=== PATIENT | male | born 1960 | race Caucasian/White ===

== ENCOUNTER → 2017-03-26 | Outpatient (CLI) | payer MEDICARE ==
[~2017-03-26] MED LIST: ASPI81CH32 PO; ASTELIN; BUPR150T3 PO; CEPA0.05 MT; COLC1TAB5 PO; DOCU10CA PO; DULC5TAB PO; DUONSOL NEB; FLEXERIL PO; LISI-538 PO; LISI10TA4 PO; LISI20TA PO; MOM30SS PO; MULTCAP PO; NORV5TAB PO; PAXI40TA2 PO; PERC5TAB6 PO; PRAV20TA2 PO; PRED20TAB PO; PROT1TAB2 PO; QUET1TAB7 PO; SENO8.6T10 PO; STOO100T PO; VALI2TAB PO
--- NOTE | 2017-03-27 09:55 | RADONC ---
RADIATION ONCOLOGY FOLLOWUP NOTE DATE: 03/26/2017 CHART NUMBER: [id number] DIAGNOSIS: Prostate cancer. STAGE: II, [id number]. ECOG PERFORMANCE STATUS: 2. FOLLOWUP NOTE: Mr. Smith is very pleasant 56-year-old white male with the diagnosis of a stage II, T1 cN0M0, moderately differentiated [place]ov[place] score 6(3-3) adenocarcinoma of the prostate who is presenting to us today 7 years post completion of external beam radiation therapy for routine followup visit. The patient presents today reporting that generally he is doing quite well with no complaints at this time related to his radiation therapy or disease other than some urinary incontinence. The patient's review of systems is positive for urinary incontinence but is otherwise noncontributory. He denies nausea, vomiting, fevers, chills, night sweats, diplopia, headaches, anxiety or depression, anorexia, weight loss, visual disturbances, chest pain, urinary or bowel difficulties, bone pain, or neurological problems. PHYSICAL EXAMINATION: The patient is a well-developed, well-nourished male in no acute distress. HEENT exam is normocephalic, atraumatic. Extraocular movements are intact. There is no palpable cervical, supraclavicular, infraclavicular, axillary, or inguinal lymphadenopathy present. Lungs are clear to auscultation and percussion. Heart has a regular rate and rhythm. Abdomen is benign with no hepatosplenomegaly, masses, or tenderness. Rectal examination reveals a normal anal sphincter tone. His prostate is smooth with no evidence of nodularity. Skeletal examination reveals no tenderness to pressure or percussion of the bony skeleton. Extremities reveal no clubbing, cyanosis, or edema. Neurologic exam is grossly intact as is the remainder of the physical examination. ASSESSMENT: The patient is clinically LOUIS at this time will be seen by us again in 1 year for further followup. He will also continue to be followed by his other physicians as well. cc: MD Branden Clayton MD Laverne VanDeWall, DO
== END ==
LOC: M ONCR 14:46
PROVIDERS: ATTEND Radiology Radiation Oncology
DX: C61 Malignant neoplasm of prostate (principal)

== ENCOUNTER → 2017-04-01 | Outpatient (REF) | payer MEDICARE ==
[2017-04-01 17:51] LABS: URIC ACID 4.7 MG/DL (3.5-7.2)
== END ==
LOC: M LAB REF 16:44
PROVIDERS: ATTEND Nurse Practitioner Adult Health
DX: M10.9 Gout, unspecified (principal); N18.3 Chronic kidney disease, stage 3 (moderate)

== ENCOUNTER → 2017-10-03 | Outpatient (CLI) | payer MEDICARE, BC ==
[~2017-10-03] MED LIST changes: +COLC1TAB14 PO; -COLC1TAB5 PO; +PAXI40TA10 PO; -PAXI40TA2 PO; +PERC5TAB12 PO; -PERC5TAB6 PO
--- NOTE | 2017-10-03 14:21 | REP ---
RIGHT ELBOW SERIES: FOUR VIEWS. HISTORY: Contusion. FINDINGS: Four views of the right elbow demonstrate marked soft tissue swelling about the olecranon. Pattern is consistent with olecranon bursitis. No fracture is seen. There is no evidence of joint effusion. IMPRESSION: Olecranon bursitis pattern of marked soft-tissue swelling. No joint effusion or fracture seen. Signed by Venkata Oquendo MD 10/03/2017 03:58 P
== END ==
LOC: M WUC 12:43
PROVIDERS: ATTEND Physician Assistant
DX: S50.01XA Contusion of right elbow, initial encounter (principal); X58.XXXA Exposure to other specified factors, initial encounter; Y92.89 Other specified places as the place of occurrence of the external cause; Y93.89 Activity, other specified; Y99.8 Other external cause status

== ENCOUNTER → 2017-10-29 | Outpatient (REF) | payer MEDICARE, BC ==
[2017-10-29 18:14] LABS: C REACTIVE PROTEIN QUANTITATIV < 0.30 MG/DL (0.00-0.30)
== END ==
LOC: M LAB REF 16:05
DX: M06.20 Rheumatoid bursitis, unspecified site (principal)
CPT/HCPCS: 86140

== ENCOUNTER → 2018-04-08 | Outpatient (REF) | payer MEDICARE, BC ==
[2018-04-10 13:07] LABS: IRON (FE) 75 UG/DL (65-175)
== END ==
LOC: M LAB REF 04-10 12:09
DX: D45 Polycythemia vera (principal)
CPT/HCPCS: 83540

== ENCOUNTER → 2018-04-08 | Outpatient (CLI) | payer MEDICARE, BC | LOC: M ONCR 15:23 | DX: C61 Malignant neoplasm of prostate (principal) | CPT/HCPCS: G0463 ==

== ENCOUNTER → 2018-05-12 | Outpatient (REF) | payer MEDICARE, BC ==
[2018-05-12 18:30] LABS: PHOSPHORUS LEVEL 3.3 MG/DL (2.5-4.9)
[2018-05-12 18:37] LABS: PTH INTACT 169.3 PG/ML (18.5-88.0)
== END ==
LOC: M LAB REF 16:43
DX: N25.81 Secondary hyperparathyroidism of renal origin (principal); N18.3 Chronic kidney disease, stage 3 (moderate)

== ENCOUNTER → 2018-05-12 | Outpatient (CLI) | payer MEDICARE, BC | LOC: M WUC 14:28 | DX: M79.645 Pain in left finger(s) (principal); N25.81 Secondary hyperparathyroidism of renal origin; N18.3 Chronic kidney disease, stage 3 (moderate) | CPT/HCPCS: 84100 ==

== ENCOUNTER → 2018-11-13 | Outpatient (REF) | payer MEDICARE, BC | LOC: M LAB REF 16:25 | PROVIDERS: ATTEND Nurse Practitioner Adult Health | DX: N25.81 Secondary hyperparathyroidism of renal origin (principal) ==

== ENCOUNTER → 2019-03-23 | Outpatient (REF) | payer MEDICARE, BC ==
[~2019-03-23] MED LIST changes: -ASPI81CH32 PO; +ASPI81CH33 PO
== END ==
LOC: M LAB REF 16:45
PROVIDERS: ATTEND Nurse Practitioner Adult Health
DX: N18.3 Chronic kidney disease, stage 3 (moderate) (principal)

== ENCOUNTER → 2019-03-31 | Outpatient (CLI) | payer BC, MEDICARE ==
--- NOTE | 2019-04-02 08:41 | RADONC ---
RADIATION ONCOLOGY FOLLOW-UP NOTE DATE: 03/31/2019 CHART NUMBER: [id number] DIAGNOSIS: Prostate cancer. STAGE: II, [id number]. ECOG PERFORMANCE STATUS: 2 FOLLOW-UP NOTE: Mr. Smith is a very pleasant 58-year-old white male with the diagnosis of a stage II, [id number], moderately differentiated [place] score 6 (3-3) adenocarcinoma of the prostate who is presenting to us today for routine follow-up 9 years post completion of external beam radiation therapy. The patient presents today reporting that he is doing quite well with no complaints at this time related to his radiation therapy or disease. He has no urinary or bowel difficulties and no bone pain. REVIEW OF SYSTEMS: The patient's review of systems is noncontributory except for deafness. He denies nausea, vomiting, fevers, chills, night sweats, diplopia, headaches, anxiety or depression, anorexia, weight loss, visual disturbances, chest pain, urinary or bowel difficulties, bone pain or neurological problems. PHYSICAL EXAMINATION: The patient is a well-developed, well-nourished male in no acute distress. HEENT exam is normocephalic, atraumatic. Extraocular movements are intact. There is no palpable cervical, supraclavicular, infraclavicular, axillary, or inguinal lymphadenopathy present. Lungs are clear to auscultation and percussion. Heart has a regular rate and rhythm. Abdomen is benign with no hepatosplenomegaly, masses, or tenderness. Rectal examination reveals a normal anal sphincter tone. His prostate is smooth with no evidence of nodularity. Skeletal examination reveals no tenderness to pressure or percussion of the bony skeleton. Extremities reveal no clubbing, cyanosis, or edema. Neurologic exam is grossly intact as is the remainder of the physical examination. ASSESSMENT: The patient is clinically LOUIS at this time and is being discharged from our follow-up except on a p.r.n. basis. cc: MD Jessica Muniz ANP Andres Madissoo, MD
== END ==
LOC: M ONCR 14:24
PROVIDERS: ATTEND Radiology Radiation Oncology
DX: Z85.46 Personal history of malignant neoplasm of prostate (principal); Z92.3 Personal history of irradiation

== ENCOUNTER → 2019-06-04 | Outpatient (CLI) | payer MEDICARE ==
[~2019-06-04] MED LIST changes: -LISI20TA PO; +LISI20TA19 PO
--- NOTE | 2019-06-06 10:51 | ECHO ---
DATE OF PROCEDURE: 06/04/2019 REFERRING PHYSICIAN: Dr. Navarro INDICATION: Systemic hypertension. HEIGHT: 5 feet 8 inches WEIGHT: 203 pounds 2D MEASUREMENTS: Aortic annulus: 3.4 cm Left atrium: 3.6 cm Ventricular septum: 1.21 cm Posterior wall: 1.24 cm Left ventricle diastole: 5.5 cm DOPPLER MEASUREMENTS: Aortic valve velocity: 118 cm/s LVOT velocity: 86.5 cm/s Mitral E velocity: 55.3 cm/s Mitral A velocity: 80.0 cm/s Pulmonary artery systolic pressure: 27 mmHg. MITRAL ANNULAR TISSUE DOPPLER: E prime septal: 4.35 cm/s E prime lateral: 4.6 cm/s DESCRIPTION: Rhythm was sinus. Image quality was fair. No pericardial effusion. This was a 2D, M-mode, color flow Doppler and pulse wave Doppler examination and included mitral annular tissue Doppler. CONCLUSIONS: 1. Mild concentric left ventricular hypertrophy with superimposed moderate focal hypertrophy of the basal anterior ventricular septum. No dynamic LVOT obstruction. Normal LV systolic function. Left ventricular ejection fraction (LVEF) 65% by visual estimate. Grade 1 LV diastolic dysfunction. 2. Mild mitral annular calcification. No mitral regurgitation. 3. Very mild aortic valve sclerosis of a 3-cusp aortic valve. No aortic regurgitation. 4. Otherwise normal appearing echocardiogram Doppler.
== END ==
LOC: M CARPUL 09:05
PROVIDERS: ATTEND Internal Medicine Nephrology
DX: I10 Essential (primary) hypertension (principal)

== ENCOUNTER → 2019-06-11 | Outpatient (REF) | payer MEDICARE | LOC: M LAB REF 16:24 | PROVIDERS: ATTEND Nurse Practitioner Adult Health | DX: R07.9 Chest pain, unspecified (principal) ==

== ENCOUNTER 2020-03-31 06:08 | Emergency (ER) | payer MEDICARE ==
[~2020-03-31] VITALS: Ht 177.8 cm; Wt 89.5 kg
[~2020-03-31 06:08] MED LIST changes: -LISI20TA19 PO; +LISI20TA35 PO
[2020-03-31] MEDS ORDERED: BUPR300T92 (06:42)
[2020-03-31] MEDS ORDERED: SPIR-10 (06:42)
[2020-03-31] MEDS ORDERED: ALLO100T (06:42)
[2020-03-31] MEDS ORDERED: CLON-412 (06:42)
[2020-03-31] MEDS ORDERED: NS 1,000 ML IV SCH (07:05)
[2020-03-31 07:19] LABS: BASO # 0.1 10^3/uL (0.0-0.2); BASO % 0.4 % (0.0-1.0); EOS % 0.2 % (0.0-3.0); HEMATOCRIT 47.6 % (42.0-52.0); HEMOGLOBIN 16.2 g/dl (13.5-17.5); LYMPH # 1.2 10^3/uL (1.5-5.0); LYMPH % 9.5 % (24.0-44.0); MEAN CORPUSCULAR HEMOGLOBIN 31.2 pg (27.0-33.0); MEAN CORPUSCULAR VOLUME 91.7 fl (80.0-96.0); MONO % 7.4 % (0.0-5.0); NEUTROPHILS # 10.6 10^3/uL (1.5-8.5); NEUTROPHILS % 81.8 % (36.0-66.0); PLATELET COUNT, AUTOMATED 256 10^3/uL (150-450); RED BLOOD COUNT 5.19 10^6/uL (4.30-6.10); WHITE BLOOD COUNT 12.9 10^3/uL (4.0-10.0)
[2020-03-31 07:33] LABS: ALBUMIN 3.8 GM/DL (3.2-5.2); BILIRUBIN,DIRECT 0.2 MG/DL (0.0-0.2); BILIRUBIN,TOTAL 0.7 MG/DL (0.2-1.0); CALCIUM LEVEL 8.9 MG/DL (8.8-10.2); CK-MB VALUE MASS 5.7 NG/ML (<3.6); CREATININE FOR GFR 2.79 MG/DL (0.70-1.30); GLOMERULAR FILTRATION RATE 24.7 (>49); MB/CK RELATIVE INDEX 1.38 (< OR =4); POTASSIUM SERUM 5.2 MEQ/L (3.5-5.1); TOTAL PROTEIN 6.7 GM/DL (6.4-8.2); TROPONIN I 0.05 NG/ML (< 0.10)
[2020-03-31 07:38] LABS: THYROID STIMULATING HORMONE 0.764 uIU/ML (0.358-3.740)
--- NOTE | 2020-03-31 07:42 | REPVR ---
PROCEDURE INFORMATION: Exam: CT Head Without Contrast Exam date and time: 03/31/2020 7:22 AM Age: 59 years old Clinical indication: Altered mental status/memory loss TECHNIQUE: Imaging protocol: Computed tomography of the head without contrast. Radiation optimization: All CT scans at this facility use at least one of these dose optimization techniques: automated exposure control; mA and/or kV adjustment per patient size (includes targeted exams where dose is matched to clinical indication); or iterative reconstruction. COMPARISON: No relevant prior studies available. FINDINGS: Tubes, catheters and devices: A right frontal approach TRACER LATHE SET UP OPERATOR shunt catheter is present with its tip in the frontal horn of the left lateral ventricle. Brain: Mild degrees of lucency in the white matter are most suggestive of chronic microvascular ischemic disease. There is no evidence for large acute cortical infarct. No intracranial hemorrhage or extraaxial collection is identified. There is no significant intracranial mass effect. Small lacunar infarcts are present in the bilateral basal ganglia. Ventricles: The ventricles and sulci are moderately prominent, in concordance with moderate global atrophy. Bones/joints: Unremarkable. No acute fracture. Sinuses: Visualized sinuses are unremarkable. No fluid levels. Mastoid air cells: Visualized mastoid air cells are well aerated. Vasculature: Intracranial atherosclerotic vascular calcifications are noted. Soft tissues: Unremarkable. IMPRESSION: 1. No CT evidence for acute intracranial abnormality. 2. TRACER LATHE SET UP OPERATOR shunt catheter in place. ASSESSMENT: ASPECTS (Diane Stroke Program Early CT Score) is 10. COMMENTS: Early cerebral infarct may be CT occult in the first 12 hours. Electronically signed by: Nimesh Romo On 03/31/2020 07:41:31 AM
[2020-03-31 07:52] LABS: VENOUS BASE EXCESS -5.3 (-2.0-2.0); VENOUS HCO3 19.2 MEQ/L (23.0-27.0); VENOUS O2 SATURATION 91.8 % (60.0-80.0); VENOUS PARTIAL PRESSURE CO2 34.6 mmHg (38.0-50.0); VENOUS PARTIAL PRESSURE O2 62.2 mmHg (30.0-50.0); VENOUS PH 7.362 UNITS (7.330-7.430); VENOUS STANDARD HCO3 20.1 MEQ/L; VENOUS TOTAL CO2 20.3 MEQ/L (24.0-28.0)
--- NOTE | 2020-03-31 07:57 | REP ---
Portable chest x-ray: Single view. History: Altered mental status. Comparison study: May 01, 2015. Findings: A right-sided ventriculoperitoneal shunt catheter is seen along with monitoring electrodes. There is linear fibrosis versus plate-like atelectasis along the left heart border. The lungs are symmetrically aerated and otherwise clear. Pleural angles are sharp. Pulmonary vasculature is not increased. Heart is not felt to be enlarged. Impression: No acute disease. Plate-like atelectasis versus linear fibrosis along the left heart border. Electronically Signed by Venkata Oquendo MD 03/31/2020 07:47 A
[2020-03-31 08:19] LABS: MAGNESIUM LEVEL 2.2 MG/DL (1.8-2.4)
[2020-03-31 09:31] LABS: POTASSIUM RANDOM URINE 62.5 MEQ/L
[2020-03-31 09:41] VITALS: BP 143/83
[2020-03-31 09:52] LABS: TOTAL PROTEIN,RANDOM URINE 37.3 MG/DL (0.0-12.0)
--- NOTE | 2020-04-01 07:51 | ECGEPIP ---
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
== END 2020-03-31 09:50 | disposition home or self-care (01) ==
LOC: M ED 06:08
DX: N28.9 Disorder of kidney and ureter, unspecified (principal); I10 Essential (primary) hypertension; J44.9 Chronic obstructive pulmonary disease, unspecified; E78.5 Hyperlipidemia, unspecified; F33.9 Major depressive disorder, recurrent, unspecified; G91.9 Hydrocephalus, unspecified; Z98.2 Presence of cerebrospinal fluid drainage device; Z79.899 Other long term (current) drug therapy; Z79.82 Long term (current) use of aspirin; Z88.1 Allergy status to other antibiotic agents; Z87.891 Personal history of nicotine dependence

== ENCOUNTER 2020-06-13 20:28 | Emergency (ER) | payer MEDICARE ==
[~2020-06-13] VITALS: Ht 165.1 cm; Wt 122.7 kg
[~2020-06-13 20:28] MED LIST changes: +ALLO100T; +BUPR300T92; +CLON-412; +SPIR-10
[2020-06-13 21:45] VITALS: BP 152/88
== END 2020-06-13 22:45 | disposition home or self-care (01) ==
LOC: M ED 20:28
DX: R41.0 Disorientation, unspecified (principal); I10 Essential (primary) hypertension; E11.9 Type 2 diabetes mellitus without complications; K21.9 Gastro-esophageal reflux disease without esophagitis; I25.10 Atherosclerotic heart disease of native coronary artery without angina pectoris; H90.5 Unspecified sensorineural hearing loss; Z88.1 Allergy status to other antibiotic agents; Z79.899 Other long term (current) drug therapy; Z79.82 Long term (current) use of aspirin

== ENCOUNTER 2021-03-10 05:57 | Inpatient (IN) | payer MEDICARE ==
[~2021-03-10] VITALS: Ht 170.2 cm; Wt 87.5 kg
[~2021-03-10 05:57] MED LIST changes: -ALLO100T; +ALLO100T PO; +BUPR150T12 PO; -BUPR150T3 PO; -BUPR300T92; +BUPR300T92 PO; -CLON-412; +CLON-412 PO; -LISI-538 PO; +LISI10TA22 PO; -LISI10TA4 PO; +LISI20TA33 PO; -QUET1TAB7 PO; +QUET25TA3 PO
[2021-03-10 07:16] LABS: BASO # 0.1 10^3/uL (0.0-0.2); EOS # 0.7 10^3/uL (0.0-0.5); EOS % 6.9 % (0.0-3.0); HEMATOCRIT 48.7 % (42.0-52.0); HEMOGLOBIN 15.9 g/dl (13.5-17.5); LYMPH % 18.8 % (24.0-44.0); MEAN CORPUSCULAR HEMOGLOBIN 30.7 pg (27.0-33.0); MEAN CORPUSCULAR HGB CONC 32.6 g/dl (32.0-36.5); MONO # 0.8 10^3/uL (0.0-0.8); MONO % 7.4 % (2.0-8.0); NEUTROPHILS # 6.9 10^3/uL (1.5-8.5); NEUTROPHILS % 65.2 % (36.0-66.0); PLATELET COUNT, AUTOMATED 332 10^3/uL (150-450); RED BLOOD COUNT 5.18 10^6/uL (4.30-6.10); WHITE BLOOD COUNT 10.5 10^3/uL (4.0-10.0)
[2021-03-10 07:44] LABS: ALBUMIN 3.6 GM/DL (3.2-5.2); ALT/SGPT 41 U/L (12-78); BILIRUBIN,DIRECT 0.1 MG/DL (0.0-0.2); BILIRUBIN,TOTAL 0.4 MG/DL (0.2-1.0); NT-PRO BNP 33 PG/ML (<125)
[2021-03-10] MEDS ORDERED: methylPREDNISolone 125MG 2ML VIAL IV ONE (07:50)
[2021-03-10] MEDS ORDERED: ACETAMINOPHEN TAB 650MG DOSE (2X325MG) PO ONE (07:50)
--- NOTE | 2021-03-10 08:01 | REP ---
INDICATION: DYSPNEA/COUGH COMPARISON: 03/31/2020 TECHNIQUE: Portable AP view of the chest FINDINGS: Examination is limited by portable technique, underpenetration and poor inspiratory effort. The mediastinum and cardiac silhouette are stable and cardiomegaly again noted. The lung vuong are clear without acute consolidation, effusion, or pneumothorax. Skeletal structures are intact. Right-sided ventriculoperitoneal shunt noted and stable position. IMPRESSION: No acute cardiopulmonary process appreciated. <Electronically signed by Rui Egan > 03/10/21 0758
[2021-03-10] MEDS: COMBIVENT RESPIMAT 100-20MCG INHALER 4GM INH SCH ×3 (08:08→08:17)
[2021-03-10 08:44] VITALS: O2SAT 95
--- NOTE | 2021-03-10 08:56 | ECGEPIP ---
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
--- NOTE | 2021-03-10 09:10 | REP ---
INDICATION: headache, h/o COLLEGE DEAN shunt COMPARISON: 07/10/2020 TECHNIQUE: Axial noncontrast images from the skull base to the thoracic inlet with coronal reformations. This CT examination was performed using the following dose reduction techniques: Automated exposure control, adjustment of mA and/or kv according to the patient's size, and use of iterative reconstruction technique. FINDINGS: Atrophy, periventricular leukomalacia and microvascular ischemic changes are appreciated and relatively stable. Ventriculoperitoneal shunt via a right frontal approach is again noted and the ventricles and sulci are symmetric/stable. Naqvi-white differentiation is maintained. There is no evidence for acute intracranial hemorrhage, mass/mass effect, pathology or infarction. No extra-axial fluid collection. Calvarium is intact. Paranasal sinuses and mastoid air cells are clear. IMPRESSION: Atrophy and microvascular ischemic changes. Ventriculoperitoneal shunt in stable position with stable appearance to the ventricles. No acute intracranial hemorrhage, infarction, or mass/mass effect. <Electronically signed by Rui Egan > 03/10/21 0906
[2021-03-10 10:29] LABS: BLOOD UREA NITROGEN 21 MG/DL (7-18); CARBON DIOXIDE LEVEL 19 MEQ/L (21-32); CHLORIDE LEVEL 111 MEQ/L (98-107); CREATININE FOR GFR 1.77 MG/DL (0.70-1.30); GLOMERULAR FILTRATION RATE 41.7 (>49); GLUCOSE, FASTING 89 MG/DL (70-100); SODIUM LEVEL 140 MEQ/L (136-145)
--- NOTE | 2021-03-10 10:30 | REP ---
INDICATION: b/l leg pain, SOB, r/o dvt COMPARISON: None. TECHNIQUE: Naqvi scale and color Doppler evaluation using linear high frequency transducer. FINDINGS: Ultrasound examination of the right and left lower extremity deep venous structures from the common femoral vein through the calf/ankle to include the peroneal, and tibial veins demonstrates normal compressibility flow and wave patterns in response to respiration and augmentation. There is no evidence for deep venous thrombosis. 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 IMPRESSION: No evidence for deep venous thrombosis. <Electronically signed by Rui Egan > 03/10/21 1024
[2021-03-10 10:46] LABS: CK-MB VALUE MASS 2.6 NG/ML (<3.6); CPK CREATINE PHOSPHOKINASE 207 U/L (39-308); MB/CK RELATIVE INDEX 1.26 (< OR =4); TROPONIN I < 0.02 NG/ML (< 0.10)
[2021-03-10] MEDS ORDERED: ISOVUE-370 76% 100ML VIAL As Ordered ONE (11:10)
[2021-03-10] MEDS ORDERED: AZEL0.055 NARES (11:15)
[2021-03-10] MEDS ORDERED: CYCL-707 PO (11:15)
[2021-03-10] MEDS ORDERED: AMLO1TAB25 PO (11:15)
[2021-03-10] MEDS ORDERED: ALBUTEROL 90 MCG/ACT 8GM HFA INHALER INH PRN (11:25)
[2021-03-10] MEDS ORDERED: ACETAMINOPHEN TAB 650MG DOSE (2X325MG) PO PRN (11:25)
--- NOTE | 2021-03-10 11:52 | REP ---
INDICATION: sob, r/o PE COMPARISON: None. TECHNIQUE: Axial contrast enhanced images from the thoracic inlet to the upper abdomen using pulmonary embolus technique with multiplanar re-formations. 50 ml Isovue 370 intravenous contrast material administered without complication. This CT examination was performed using the following dose reduction techniques: Automated exposure control, adjustment of mA and/or kv according to the patient's size, and use of iterative reconstruction technique. FINDINGS: Satisfactory enhancement of the pulmonary vasculature is achieved however evaluation is significantly limited due to respiratory motion artifact, and no obvious filling defects are identified to suggest pulmonary embolus. There is evidence for mucous plugging involving right lower lobe bronchus with associated moderate area of right lower lobe postobstructive atelectasis. There is a rounded soft tissue lesion at the right hilum which may reflect reactive adenopathy. Remainder of lung vuong are relatively well aerated and clear. No effusion. No pneumothorax. Remainder of the mediastinum demonstrates atherosclerotic changes to the thoracic aorta and coronary arteries without aortic aneurysm/dissection. Mild cardiomegaly cannot be excluded. No pericardial effusion. Skeletal structures are intact. Limited upper abdomen demonstrates normal bilateral adrenal glands, bilateral renal hypodensities suggesting cysts and cholelithiasis without evidence for acute cholecystitis. IMPRESSION: 1. Limited by respiratory artifact. However no pulmonary emboli are identified. 2. Mucous plugging and postobstructive atelectasis to the right lower lobe. <Electronically signed by Rui Egan > 03/10/21 [id number]
[2021-03-10] MEDS ORDERED: ALBU83IN NEB (11:53)
--- NOTE | 2021-03-10 11:54 | HPEPDOC ---
General Date of Admission March 10, 2021 at 05:58 Date of Service: March 10, 2021 Chief Complaint The patient is a 60-year-old male admitted with a reason for visit of Shortness Of Breath. Source: Patient Exam Limitations: No limitations Timing/Duration: Day(s) Severity: Moderate History of Present Illness Patient is 60 years old deaf male with past medical history of depression, hypertension, hyperlipidemia, COPD, hydrocephalus, prostate cancer, status post radiation, CVA presented hospital with increased shortness of breath. The patient is unable to speak and is only able to sign. I obtained all information from his brother who was physically present in the room. Patient developed cough, increased shortness of breath for past 5-7 days. His symptoms became worse despite of increased frequency of using inhalers. He didn't have any fever or chills or sputum production. His brother told me that patient became more deconditioned for past few weeks and most of the time he is lying on the bed. In ER patient was found to have leukocytes count of 10.5, creatinine 1.7, lactic acid 0.9, d dimer>4000. Doppler DVT of lower extremities negative. Nasal swab positive for human rhinovirus/enterovirus infection. Chest X-ray negative for acute infiltrate Home Medications Scheduled Allopurinol (Allopurinol) 100 Mg Tablet, 100 MG PO QPM, (Reported) Amlodipine Besylate (Amlodipine Besylate) 10 Mg Tablet, 10 MG PO DAILY, ( Reported) Bupropion HCl (Bupropion Xl) 300 Mg Tab.er.24h, 300 MG PO DAILY, (Reported) Clonidine HCl (Clonidine HCl) 0.1 Mg Tablet, 0.1 MG PO DAILY, (Reported) Lisinopril (Lisinopril) 20 Mg Tab, 20 MG PO DAILY, (Reported) HOLD FOR SBP <110 Pantoprazole Sodium (Protonix) 40 Mg Tab, 40 MG PO DAILY, (Reported) Paroxetine HCl (Paxil) 40 Mg Tab, 40 MG PO DAILY, (Reported) Pravastatin Sodium (Pravastatin Sodium) 20 Mg Tab, 20 MG PO DAILY, (Reported) Sennosides/Docusate Sodium (Senokot-S Tablet) 1 Tab Tab, 1 TAB PO BID, (Reported) Scheduled PRN Albuterol Sulf (Albuterol Sulfate) 2.5 Mg/3 Ml Vial.neb, 1 VIAL NEB Q4H PRN for SOB/WHEEZING, (Reported) Cyclobenzaprine HCl (Cyclobenzaprine HCl) 10 Mg Tablet, 10 MG PO TID PRN for MUSCLE SPASMS, (Reported) Milk Of Magnesia (Milk of Magnesia) 30 Ml Conc, 30 ML PO DAILYPRN PRN for CONSTIPATION, (Reported) Allergies Coded Allergies: cephalexin (Verified Allergy, Intermediate, HIVES, 03/31/20) Past Medical History Medical History depression, hypertension, hyperlipidemia, COPD, hydrocephalus, prostate cancer, status post radiation, CVA, gout 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 Family History Mother has hypertension, father has throat cancer Social History * Smoker: former Smoker Alcohol: Denies Drugs: denies A-FIB/CHADSVASC A-FIB History Current/History of A-Fib/PAF?: No Current PO Anticoag Therapy: No Review of Systems Constitutional: Reports: Malaise; Denies: Chills, Fever Eyes: Denies: Pain ENT: Denies: Head Aches Skin: Denies: Rash Pulmonary: Reports: Dyspnea, Cough Cardiovascular: Denies: Chest Pain Gastrointestinal: Denies: Nausea, Vomiting Genitourinary: Denies: Dysuria Hematologic: Denies: Bruising, Bleeding Excessively Endocrine: Denies: Polydipsia Musculoskeletal: Denies: Neck Pain Neurological: Denies: Weakness Psych: Reports: Mood Normal Physical Examination General Exam: Positive: Alert, Cooperative Eye Exam: Positive: PERRLA ENT Exam: Positive: Atraumatic Neck Exam: Positive: Supple; Negative: JVD Chest Exam: Positive: Rhonchi, Wheezing; Negative: Clear to auscultation Heart Exam: Positive: Rate Normal Telemetry: Positive: No significant arrhythmia Abdomen Exam: Positive: Normal bowel sounds Extremity Exam: Negative: Clubbing, Cyanosis Skin Exam: Positive: Nl turgor and temperature Neuro Exam: Positive: Strength at 5/5 X4 ext Psych Exam: Positive: Mood NL Vital Signs Vital Signs Date Time Temp Pulse Resp B/P (MAP) Pulse Ox O2 Delivery O2 Flow Rate FiO2 03/10/21 10:15 81 22 145/84 (104) 93 Room Air 03/10/21 06:45 98.8 Laboratory Data Labs 24H Laboratory Tests 2 03/10/21 06:59: Immature Granulocyte % (Auto) 0.7, Neutrophils (%) (Auto) 65.2, Lymphocytes (%) (Auto) 18.8L, Monocytes (%) (Auto) 7.4, Eosinophils (%) (Auto) 6.9H, Basophils (%) (Auto) 1.0, Neutrophils # (Auto) 6.9, Lymphocytes # (Auto) 2.0, Monocytes # (Auto) 0.8, Eosinophils # (Auto) 0.7H, Basophils # (Auto) 0.1, Nucleated Red Blood Cells % (auto) 0.0, Anion Gap 10, Glomerular Filtration Rate 41.7L, Lactic Acid Level 0.9, Calcium Level 9.0, Total Bilirubin 0.4, Direct Bilirubin 0.1, Aspartate Amino Transf (AST/SGOT) 26, Alanine Aminotransferase (ALT/SGPT) 41, Alkaline Phosphatase 110, Total Creatine Kinase 207, Creatine Kinase MB 2.6, Creatine Kinase MB Relative Index 1.26, Troponin I < 0.02, CX-Zpo-L-Type Natriuretic Peptide 33, Total Protein 7.0, Albumin 3.6, Albumin/Globulin Ratio 1.1, Thyroid Stimulating Hormone (TSH) 1.540 03/10/21 08:16: POC pH (Misc Panel) 7.377, POC Base Excess (Misc Panel) -5.0L, POC Saturated Percent O2 (Misc) 94L, POC pO2 (Misc Panel) 70.0L, POC pCO2 (Misc Panel) 33.8L, POC HCO3 (Misc Panel) 19.9L, POC Total CO2 (Misc Panel) 21.0L 03/10/21 08:24: D-Dimer, Quantitative > 4000H CBC/BMP Laboratory Tests 03/10/21 06:59 Microbiology Microbiology 03/10/21 Blood Culture, Received Pending 03/10/21 Respiratory Virus Panel (PCR) (VONDA) - Final, Complete Human Rhinovirus/Enterovirus 03/10/21 Blood Culture, Received Pending Assessment/Plan Patient is 60 years old deaf male with past medical history of depression, hypertension, hyperlipidemia, COPD, hydrocephalus, prostate cancer, status post radiation, CVA presented hospital with increased shortness of breath. The pat ient is unable to speak and is only able to sign. I obtained all information from his brother who was physically present in the room. Patient developed cough, increased shortness of breath for past 5-7 days. His symptoms became worse despite of increased frequency of using inhalers. He didn't have any fever or chills or sputum production. His brother told me that patient became more deconditioned for past few weeks and most of the time he is lying on the bed. In ER patient was found to have leukocytes count of 10.5, creatinine 1.7, lactic acid 0.9, d dimer>4000. Doppler DVT of lower extremities negative. Nasal swab positive for human rhinovirus/enterovirus infection. Chest X-ray negative for acute infiltrate Problems (1) Shortness of breath Status: Acute Problem Text: Secondary to COPD exacerbation due to upper respiratory viral infection. There is possibility for PE given history of low physical activity f or past 2-3 weeks Patient was tested positive for rhinovirus/enterovirus IV steroids, incentive spirometry, inhalers (2) Hypertension Status: Chronic Problem Text: Continue home meds (3) Hyperlipidemia Status: Chronic Problem Text: Continue statin (4) Depression Status: Chronic Problem Text: Continue home meds (5) KELVIN (acute kidney injury) Status: Acute Problem Text: Most likely secondary to dehydration Continue IV fluid Continue to monitor (6) Elevated d-dimer Status: Acute Problem Text: D-dimer elevated >4000 Will proceed with CTA to rule out PE Plan / VTE VTE Prophylaxis Ordered?: Yes KENNETH NOGUERA DO March 10, 2021 11:54
[2021-03-10] MEDS ORDERED: CYCLOBENZAPRINE 10MG TABLET PO PRN (11:55)
[2021-03-10] MEDS ORDERED: NS 1,000 ML IV ONE (12:00)
[2021-03-10] MEDS ORDERED: LevoFLOXacin IV 750 MG in IV 1 EA IV SCH (12:00)
[2021-03-10 12:20] VITALS: BP 153/92
[2021-03-10] MEDS: NS 1,000 ML IV SCH ×2 (12:34→22:35)
[2021-03-10] MEDS: buPROPion **XL** TABLET 150MG (WELLBUTRIN XL) PO SCH (12:46)
[2021-03-10] MEDS: cloNIDine 0.1MG TABLET PO SCH (12:46)
[2021-03-10] MEDS: PARoxetine 20MG TABLET PO SCH (12:46)
[2021-03-10 14:00] VITALS: BP 120/82
[2021-03-10] MEDS: IPRATROPIUM 0.5MG/ALBUTEROL 2.5MG INH SOL UD 3ML (DUONEB) NEB SCH ×2 (14:44→20:05)
[2021-03-10] MEDS: methylPREDNISolone 125MG 2ML VIAL IV SCH (17:46)
[2021-03-10] MEDS ORDERED: allopurinoL 100 MG TAB PO SCH (18:00)
[2021-03-10] MEDS: ADVAIR HFA 115/21MCG INHALER INH SCH (20:05)
[2021-03-10] MEDS: SENOKOT S TAB PO SCH (20:13)
[2021-03-10] MEDS: ATORVASTATIN 20 MG TAB PO SCH (20:13)
[2021-03-10] MEDS: ENOXAPARIN 40MG/0.4ML SYRINGE (J1650 PER 10MG) SC SCH (20:13)
[2021-03-10 22:00] VITALS: BP 121/76
[2021-03-11] MEDS: methylPREDNISolone 125MG 2ML VIAL IV SCH ×2 (00:03→08:32)
[2021-03-11] MEDS: IPRATROPIUM 0.5MG/ALBUTEROL 2.5MG INH SOL UD 3ML (DUONEB) NEB SCH ×4 (01:07→18:20)
[2021-03-11 06:00] VITALS: BP 122/77
[2021-03-11 06:17] LABS: MEAN CORPUSCULAR HEMOGLOBIN 31.4 pg (27.0-33.0); MEAN CORPUSCULAR HGB CONC 33.3 g/dl (32.0-36.5); MEAN CORPUSCULAR VOLUME 94.1 fl (80.0-96.0); PLATELET COUNT, AUTOMATED 320 10^3/uL (150-450); RED BLOOD COUNT 4.78 10^6/uL (4.30-6.10)
[2021-03-11 06:45] LABS: ALBUMIN 3.3 GM/DL (3.2-5.2); BILIRUBIN,TOTAL 0.3 MG/DL (0.2-1.0); CALCIUM LEVEL 9.1 MG/DL (8.8-10.2); CREATININE FOR GFR 1.84 MG/DL (0.70-1.30); GLOMERULAR FILTRATION RATE 39.9 (>49); MAGNESIUM LEVEL 2.2 MG/DL (1.8-2.4); TOTAL PROTEIN 6.4 GM/DL (6.4-8.2)
[2021-03-11] MEDS: ADVAIR HFA 115/21MCG INHALER INH SCH ×2 (07:23→18:20)
[2021-03-11] MEDS: guaiFENesin SYRUP 200 MG/10 ML UDC PO PRN (08:32)
[2021-03-11] MEDS: PANTOPRAZOLE 40MG TAB (PROTONIX) PO SCH (08:33)
[2021-03-11] MEDS: buPROPion **XL** TABLET 150MG (WELLBUTRIN XL) PO SCH (08:33)
[2021-03-11] MEDS: cloNIDine 0.1MG TABLET PO SCH (08:33)
[2021-03-11] MEDS: SENOKOT S TAB PO SCH ×2 (08:33→21:51)
[2021-03-11] MEDS: PARoxetine 20MG TABLET PO SCH (08:33)
[2021-03-11] MEDS: NS 1,000 ML IV SCH ×2 (08:34→18:06)
[2021-03-11] MEDS ORDERED: PRAVASTATIN 20 MG TAB PO SCH (09:00)
--- NOTE | 2021-03-11 10:24 | IPNPDOC ---
Text Note Date of Service The patient was seen on 03/11/21. NOTE Subjective: Patient complains of intermittent cough with yellowish phlegm. No fever or chills Objective: GENERAL APPEARANCE: NAD HEENT: no scleral icterus, no JVD, EOMI CARDIOVASCULAR: S1S2 LUNGS: Coarse lung sounds bilaterally ABDOMEN: soft & not tender w palpitation MUSCULOSKELETAL: no cyanosis, no swelling INTEGUMENT: no generalized pallor NEUROLOGICAL: pt deaf, follows commands, speech not dysarthric Assessment and plan Assessment/Plan Patient is 60 years old deaf male with past medical history of depression, hypertension, hyperlipidemia, COPD, hydrocephalus, prostate cancer, status post radiation, CVA presented hospital with increased shortness of breath. The patient is unable to speak and is only able to sign. I obtained all information from his brother who was physically present in the room. Patient developed cough, increased shortness of breath for past 5-7 days. His symptoms became worse despite of increased frequency of using inhalers. He didn't have any fever or chills or sputum production. His brother told me that patient became more deconditioned for past few weeks and most of the time he is lying on the bed. In ER patient was found to have leukocytes count of 10.5, creatinine 1.7, lactic acid 0.9, d dimer>4000. Doppler DVT of lower extremities negative. Nasal swab positive for human rhinovirus/enterovirus infection. Chest X-ray negative for acute infiltrate Problems (1) Shortness of breath Secondary to COPD exacerbation due to upper respiratory viral infection superimposed with bacterial infection due to greenish sputum. CTA negative for PE Patient was tested positive for rhinovirus/enterovirus By mouth steroids, incentive spirometry, inhalers Continue levofloxacin IV (2) Hypertension Continue home meds (3) Hyperlipidemia Continue statin (4) Depression Continue home meds (5) KELVIN (acute kidney injury) Most likely secondary to dehydration Continue IV fluid Continue to monitor (6) Elevated d-dimer D-dimer elevated >4000 CTA did not show pulmonary emboli Cough Robitussin VS,Fishbone, I+O VS, Fishbone, I+O Laboratory Tests 03/11/21 05:36 Vital Signs Date Time Temp Pulse Resp B/P (MAP) Pulse Ox O2 Delivery O2 Flow Rate FiO2 03/11/21 08:33 122/77 03/11/21 08:33 99 03/11/21 06:00 98.0 22 90 03/10/21 14:00 Room Air I&O- Last 24 Hours up to 6 AM 03/11/21 06:00 Intake Total 3740 ml Output Total 175 ml Balance 3565 ml KENNETH NOGUERA DO March 11, 2021 10:24
[2021-03-11] MEDS ORDERED: predniSONE 20 MG TAB PO ONE (10:25)
[2021-03-11 14:00] VITALS: BP 124/77
[2021-03-11] MEDS ORDERED: RAMELTEON 8 MG TAB (ROZEREM) PO PRN (19:50)
[2021-03-11] MEDS: ATORVASTATIN 20 MG TAB PO SCH (21:51)
[2021-03-11] MEDS: ENOXAPARIN 40MG/0.4ML SYRINGE (J1650 PER 10MG) SC SCH (21:51)
[2021-03-11 22:00] VITALS: BP 123/77
[2021-03-12] MEDS: guaiFENesin SYRUP 200 MG/10 ML UDC PO PRN (00:30)
[2021-03-12] MEDS: IPRATROPIUM 0.5MG/ALBUTEROL 2.5MG INH SOL UD 3ML (DUONEB) NEB SCH ×4 (01:19→20:00)
[2021-03-12] MEDS: NS 1,000 ML IV SCH (05:19)
[2021-03-12 06:00] VITALS: BP 118/73
[2021-03-12] MEDS ORDERED: LevoFLOXacin 750 MG TABLET PO SCH (06:00)
[2021-03-12] MEDS: ADVAIR HFA 115/21MCG INHALER INH SCH ×2 (07:44→20:27)
[2021-03-12 08:21] LABS: BASO % 0.1 % (0.0-1.0); HEMOGLOBIN 13.7 g/dl (13.5-17.5); LYMPH # 1.6 10^3/uL (1.5-5.0); LYMPH % 8.9 % (24.0-44.0); MEAN CORPUSCULAR HEMOGLOBIN 30.9 pg (27.0-33.0); MEAN CORPUSCULAR HGB CONC 32.6 g/dl (32.0-36.5); MEAN CORPUSCULAR VOLUME 94.8 fl (80.0-96.0); MONO # 1.1 10^3/uL (0.0-0.8); MONO % 5.9 % (2.0-8.0); NEUTROPHILS # 15.1 10^3/uL (1.5-8.5); NEUTROPHILS % 83.8 % (36.0-66.0); PLATELET COUNT, AUTOMATED 321 10^3/uL (150-450); RED BLOOD COUNT 4.43 10^6/uL (4.30-6.10)
[2021-03-12 09:43] LABS: CALCIUM LEVEL 9.1 MG/DL (8.8-10.2); CREATININE FOR GFR 1.58 MG/DL (0.70-1.30); GLOMERULAR FILTRATION RATE 47.5 (>49); MAGNESIUM LEVEL 2.2 MG/DL (1.8-2.4); POTASSIUM SERUM 4.8 MEQ/L (3.5-5.1)
[2021-03-12] MEDS: PANTOPRAZOLE 40MG TAB (PROTONIX) PO SCH (09:53)
[2021-03-12] MEDS: PARoxetine 20MG TABLET PO SCH (09:53)
[2021-03-12] MEDS: SENOKOT S TAB PO SCH ×2 (09:53→20:26)
[2021-03-12] MEDS: predniSONE 20 MG TAB PO SCH (09:53)
[2021-03-12] MEDS: cloNIDine 0.1MG TABLET PO SCH (09:55)
[2021-03-12] MEDS: buPROPion **XL** TABLET 150MG (WELLBUTRIN XL) PO SCH (09:55)
--- NOTE | 2021-03-12 11:25 | IPNPDOC ---
Text Note Date of Service The patient was seen on 03/12/21. NOTE Subjective: No any acute events overnight. Patient stated that his feverish, no chills. Denies any pain. Continues to have intermittent cough Objective: GENERAL APPEARANCE: NAD HEENT: no scleral icterus, no JVD, EOMI CARDIOVASCULAR: S1S2 LUNGS: Coarse lung sounds bilaterally ABDOMEN: soft & not tender w palpitation MUSCULOSKELETAL: no cyanosis, no swelling INTEGUMENT: no generalized pallor NEUROLOGICAL: pt deaf, follows commands, speech not dysarthric Assessment and plan Assessment/Plan Patient is 60 years old deaf male with past medical history of depression, hypertension, hyperlipidemia, COPD, hydrocephalus, prostate cancer, status post radiation, CVA presented hospital with increased shortness of breath. The patient is unable to speak and is only able to sign. I obtained all information from his brother who was physically present in the room. Patient developed cough, increased shortness of breath for past 5-7 days. His symptoms became worse despite of increased frequency of using inhalers. He didn't have any fever or chills or sputum production. His brother told me that patient became more deconditioned for past few weeks and most of the time he is lying on the bed. In ER patient was found to have leukocytes count of 10.5, creatinine 1.7, lactic acid 0.9, d dimer>4000. Doppler DVT of lower extremities negative. Nasal swab positive for human rhinovirus/enterovirus infection. Chest X-ray negative for acute infiltrate Problems (1) Shortness of breath Secondary to COPD exacerbation due to upper respiratory viral infection superimposed with bacterial infection given greenish sputum. CTA negative for PE Patient was tested positive for rhinovirus/enterovirus By mouth steroids, incentive spirometry, inhalers Continue levofloxacin by mouth (2) Hypertension Continue home meds (3) Hyperlipidemia Continue statin (4) Depression Continue home meds (5) KELVIN (acute kidney injury) Improved Most likely secondary to dehydration Continue to monitor (6) Elevated d-dimer D-dimer elevated >4000 CTA did not show pulmonary emboli Cough Robitussin VS,Fishbone, I+O VS, Fishbone, I+O Laboratory Tests 03/12/21 08:12 Vital Signs Date Time Temp Pulse Resp B/P (MAP) Pulse Ox O2 Delivery O2 Flow Rate FiO2 03/12/21 09:55 116/73 03/12/21 06:00 98.3 81 22 93 03/11/21 14:00 Room Air I&O- Last 24 Hours up to 6 AM 03/12/21 06:00 Intake Total 5480 ml Output Total 925 ml Balance 4555 ml KENNETH NOGUERA DO March 12, 2021 11:25
[2021-03-12 14:00] VITALS: BP 129/67
[2021-03-12] MEDS: ATORVASTATIN 20 MG TAB PO SCH (20:26)
[2021-03-12] MEDS: ENOXAPARIN 40MG/0.4ML SYRINGE (J1650 PER 10MG) SC SCH (20:26)
[2021-03-12 22:00] VITALS: BP 128/68
[2021-03-13] MEDS: IPRATROPIUM 0.5MG/ALBUTEROL 2.5MG INH SOL UD 3ML (DUONEB) NEB SCH ×3 (00:30→13:24)
[2021-03-13 06:00] VITALS: BP 152/96
[2021-03-13] MEDS: ADVAIR HFA 115/21MCG INHALER INH SCH (07:04)
[2021-03-13] MEDS ORDERED: MIRALAX *UNIT DOSE* 17GM PACKET PO ONE (08:30)
[2021-03-13 09:17] VITALS: BP 133/86
[2021-03-13] MEDS: PARoxetine 20MG TABLET PO SCH (09:17)
[2021-03-13] MEDS: buPROPion **XL** TABLET 150MG (WELLBUTRIN XL) PO SCH (09:17)
[2021-03-13] MEDS: PANTOPRAZOLE 40MG TAB (PROTONIX) PO SCH (09:17)
[2021-03-13] MEDS: SENOKOT S TAB PO SCH (09:17)
[2021-03-13] MEDS: cloNIDine 0.1MG TABLET PO SCH (09:17)
[2021-03-13] MEDS: predniSONE 20 MG TAB PO SCH (09:18)
[2021-03-13] MEDS ORDERED: ATOR1TAB21 PO (09:41)
[2021-03-13] MEDS ORDERED: PRED5PAK2 PO (09:41)
[2021-03-13] MEDS ORDERED: SYMB16INH INH (09:41)
[2021-03-13] MEDS ORDERED: LEVO750T13 PO (09:41)
[2021-03-13] MEDS ORDERED: TIOT18INH INH (09:41)
--- NOTE | 2021-03-13 09:51 | ECHO ---
ECHOCARDIOGRAM DATE OF PROCEDURE: 03/11/2021 Age: 60 Gender: Male Height: 67 inches Weight: 220 pounds Body surface area: 2.11 m2 PATIENT LOCATION: Inpatient [address] [place] [address], Room 4205. REFERRING PHYSICIAN: Jeremiah Huizar DO. INDICATION: Dyspnea. MEASUREMENTS: 2D Measurements: RV 3.6 cm LV 4.6 cm Septum 1.2 cm Posterior wall 1.2 cm Aortic Root 3.4 cm Ascending aorta 3.8 cm LA 4.5 cm LVEF 75% Doppler Measurements: AV 1.4 m/s LVOT 1.06 m/s MV-E 82, A 113, E/A ratio 0.7 Early mitral deceleration time 182 msec E prime medial 9.8, A prime medial 15, E prime lateral 9.8 Average E/E prime ratio 8.4/PCWP 12.3 mmHg PV 0.9 m/s Pulmonary artery acceleration time 121 msec RVSP 31 mmHg IVC 2.0 cm COMMENTS: Normal sinus rhythm without intraventricular conduction disturbance. Somewhat challenging study in light of the patient's body habitus, but diagnostically useful information was still obtained. M-mode and two-dimensional echocardiography was performed with pulse, continuous wave, color flow, and tissue Doppler studies. Borderline concentric left ventricular hypertrophy with hyperkinetic wall motion. Mildly dilated left atrium with grade 1 LV diastolic dysfunction, but current mean left atrial pressure within normal limits. Normal right heart chamber sizes and wall motion with Doppler evidence of borderline pulmonary hypertension. IVC upper limits of normal with adequate respiratory collapse against an elevated central venous pressure at this time. Normal aortic root size with slight dilatation of the proximal ascending aorta. Mild aortic valvular sclerosis without functional abnormality. Normal appearing and functioning mitral valve apparatus. Normal appearing and functioning tricuspid valve with only very mild insufficiency. No apparent intracardiac mass or pericardial effusion. MTDD
[2021-03-13] MEDS ORDERED: PRED20TA PO (10:25)
--- NOTE | 2021-03-13 12:19 | DS.PDOC ---
Discharge Summary General Date of Admission March 12, 2021 at 13:22 Date of Discharge 03/13/21 Discharge Summary PROCEDURES PERFORMED DURING STAY: [None]. ADMITTING DIAGNOSES: Shortness of breath Hypertension Hyperlipidemia Depression KELVIN (acute kidney injury) Elevated d-dimer Cough DISCHARGE DIAGNOSES: Shortness of breath Hypertension Hyperlipidemia Depression KELVIN (acute kidney injury) Elevated d-dimer Cough COMPLICATIONS/CHIEF COMPLAINT: Shortness Of Breath. HISTORY OF PRESENT ILLNESS: Patient is 60 years old deaf male with past medical history of depression, hypertension, hyperlipidemia, COPD, hydrocephalus, prostate cancer, status post radiation, CVA presented hospital with increased shortness of breath. The patient is unable to speak and is only able to sign. I obtained all information from his brother who was physically present in the room. Patient developed cough, increased shortness of breath for past 5-7 days. His symptoms became worse despite of increased frequency of using inhalers. He didn't have any fever or chills or sputum production. His brother told me that patient became more deconditioned for past few weeks and most of the time he is lying on the bed. In ER patient was found to have leukocytes count of 10.5, creatinine 1.7, lactic acid 0.9, d dimer>4000. Doppler DVT of lower extremities negative. Nasal swab positive for human rhinovirus/enterovirus infection. Chest X-ray negative for acute infiltrate HOSPITAL COURSE: During the hospital stay following issue addressed (1) Shortness of breath Secondary to COPD exacerbation due to upper respiratory viral infection supe rimposed with bacterial infection given greenish sputum. CTA negative for PE Patient was tested positive for rhinovirus/enterovirus Patient received therapy By mouth steroids, incentive spirometry, inhalers levofloxacin by mouth (2) Hypertension Continue home meds (3) Hyperlipidemia Continue statin (4) Depression Continue home meds (5) KELVIN (acute kidney injury) Improved Most likely secondary to dehydration Continue to monitor (6) Elevated d-dimer D-dimer elevated >4000 CTA did not show pulmonary emboli Cough Robitussin DISCHARGE MEDICATIONS: Please see below. ALLERGIES: Please see below. PHYSICAL EXAMINATION ON DISCHARGE: VITAL SIGNS: Please see below. GENERAL APPEARANCE: NAD HEENT: no scleral icterus, no JVD, EOMI CARDIOVASCULAR: S1S2 LUNGS: Coarse lung sounds bilaterally ABDOMEN: soft & not tender w palpitation MUSCULOSKELETAL: no cyanosis, no swelling INTEGUMENT: no generalized pallor NEUROLOGICAL: pt deaf, follows commands, speech not dysarthric LABORATORY DATA: Please see below. IMAGING: [facility] NAME: MIKA MONTALVO DATE OF : 1960 AGE: 60 SEX: M REPORT #: [id number] ROOM: [facility] TECHNOLOGIST: CHE DOCTOR: RADHA PENNY PA-C Ordered for Date&Time: 03/10/21958 cc: [~ rep ct ivnm] Service Date&Time: 03/10/211124 This report is in Signed status. If this report is in a DRAFT status it has not yet been reviewed by the radiologist for accuracy. Thank you for having your radiology procedures performed at [facility] RADIOLOGY REPORT Date&Time printed: [~ rep prt dt last] [~ rep prt tm last] Page 2 of 2 [place] [address] RADIOLOGY REPORT This report is in Signed status. If this report is in a DRAFT status it has not yet been reviewed by the radiologist for accuracy. Thank you for having your radiology procedures performed at [facility] RADIOLOGY REPORT Date&Time printed: [~ rep prt dt last] [~ rep prt tm last] Page 1 of 2 NAME: MIKA MONTALVO DATE OF : 1960 AGE: 60 SEX: M REPORT #: [id number] ROOM: [facility] TECHNOLOGIST: CHE DOCTOR: RADHA PENNY PA-C Ordered for Date&Time: 03/10/21958 cc: [~ rep ct ivnm] Service Date&Time: 03/10/211124 EXAMINATION REQUESTED: CT ANGIO CHEST REASON FOR PATIENT VISIT: SHORTNESS OF BREATH REASON FOR EXAM/COMMENT: sob, r/o PE INDICATION: sob, r/o PE COMPARISON: None. TECHNIQUE: Axial contrast enhanced images from the thoracic inlet to the upper abdomen using pulmonary embolus technique with multiplanar re-formations. 50 ml Isovue 370 intravenous contrast material administered without complication. This CT examination was performed using the following dose reduction techniques: Automated exposure control, adjustment of mA and/or kv according to the patient's size, and use of iterative reconstruction technique. FINDINGS: Satisfactory enhancement of the pulmonary vasculature is achieved however evaluation is significantly limited due to respiratory motion artifact, and no obvious filling defects are identified to suggest pulmonary embolus. There is evidence for mucous plugging involving right lower lobe bronchus with associated moderate area of right lower lobe postobstructive atelectasis. There is a rounded soft tissue lesion at the right hilum which may reflect reactive adenopathy. Remainder of lung vuong are relatively well aerated and clear. No effusion. No pneumothorax. Remainder of the mediastinum demonstrates atherosclerotic changes to the thoracic aorta and coronary arteries without aortic aneurysm/dissection. Mild cardiomegaly cannot be excluded. No pericardial effusion. Skeletal structures are intact. Limited upper abdomen demonstrates normal bilateral adrenal glands, bilateral renal hypodensities suggesting cysts and cholelithiasis without evidence for acute cholecystitis. IMPRESSION: 1. Limited by respiratory artifact. However no pulmonary emboli are identified. 2. Mucous plugging and postobstructive atelectasis to the right lower lobe. <Electronically signed by Rui Egan > 03/10/21 1148 DD: Rui Egan MD 03/10/21 1140 DT: KAI 03/10/21 1148 DS: ALONSO 03/10/21 1140 03/10/21 1140 [~ rep ct labl] PROGNOSIS: Fair ACTIVITY: [As tolerated]. DIET: Cardiac DISPOSITION: Home ITEMS TO FOLLOWUP ON ON OUTPATIENT: Follow-up with PCP in 3-5 days DISCHARGE CONDITION: [Stable]. TIME SPENT ON DISCHARGE: 40 minutes. Vital Signs/I&Os Vital Signs Date Time Temp Pulse Resp B/P (MAP) Pulse Ox O2 Delivery O2 Flow Rate FiO2 03/13/21 09:17 133/86 03/13/21 06:00 98.6 80 20 94 Room Air I&O- Last 24 Hours up to 6 AM 03/13/21 06:00 Intake Total 690 ml Balance 690 ml Microbiology Microbiology 03/10/21 Blood Culture - Preliminary, Resulted No Growth after 72 hours. All specime... 03/10/21 Respiratory Virus Panel (PCR) ([facility]ONDA) - Final, Complete Human Rhinovirus/Enterovirus 03/10/21 Blood Culture - Preliminary, Resulted No Growth after 72 hours. All specime... Discharge Medications Scheduled Allopurinol (Allopurinol) 100 Mg Tablet, 100 MG PO QPM, (Reported) Amlodipine Besylate (Amlodipine Besylate) 10 Mg Tablet, 10 MG PO DAILY, (Reported) Atorvastatin Calcium (Atorvastatin Calcium) 20 Mg Tablet, 40 MG PO QHS Budesonide/Formoterol (Symbicort 160-4.5 Mcg Inhaler) 6 Gm Hfa.aer.ad, 2 PUFF INH BID Bupropion HCl (Bupropion Xl) 300 Mg Tab.er.24h, 300 MG PO DAILY, (Reported) Clonidine HCl (Clonidine HCl) 0.1 Mg Tablet, 0.1 MG PO DAILY, (Reported) Levofloxacin (Levofloxacin) 750 Mg Tablet, 750 MG PO Q48H Lisinopril (Lisinopril) 20 Mg Tab, 20 MG PO DAILY, (Reported) HOLD FOR SBP <110 Pantoprazole Sodium (Protonix) 40 Mg Tab, 40 MG PO DAILY, (Reported) Paroxetine HCl (Paxil) 40 Mg Tab, 40 MG PO DAILY, (Reported) Prednisone (Prednisone) 20 Mg Tablet, 1 TAB PO DAILY Sennosides/Docusate Sodium (Senokot-S Tablet) 1 Tab Tab, 1 TAB PO BID, (Reported) Tiotropium Dudley Monohydrate (Spiriva) 18 Mcg Cap.w.dev, 18 MCG INH DAILY Scheduled PRN Albuterol Sulf (Albuterol Sulfate) 2.5 Mg/3 Ml Vial.neb, 1 VIAL NEB Q4H PRN for SOB/WHEEZING, (Reported) Cyclobenzaprine HCl (Cyclobenzaprine HCl) 10 Mg Tablet, 10 MG PO TID PRN for MUSCLE SPASMS, (Reported) Milk Of Magnesia (Milk of Magnesia) 30 Ml Conc, 30 ML PO DAILYPRN PRN for CONSTIPATION, (Reported) Allergies Coded Allergies: cephalexin (Verified Allergy, Intermediate, HIVES, 03/31/20) KENNETH NOGUERA DO Mar 13, 2021 12:19
== END 2021-03-13 13:47 | disposition home or self-care (01) | DRG 191 ==
LOC: M ED 05:57 → M ED INP 05:58 → ENRESERV 11:46 → M MSPAV 12:22 → OBSVTOIN 03-12 13:22 → INTOOBSV 03-12 13:22
PROVIDERS: ADMIT Internal Medicine; ATTEND Internal Medicine
DX: J44.1 Chronic obstructive pulmonary disease with (acute) exacerbation (principal); G91.9 Hydrocephalus, unspecified; N17.9 Acute kidney failure, unspecified; B34.8 Other viral infections of unspecified site; I10 Essential (primary) hypertension; F32.9 Major depressive disorder, single episode, unspecified; E78.5 Hyperlipidemia, unspecified; J44.9 Chronic obstructive pulmonary disease, unspecified; Z85.46 Personal history of malignant neoplasm of prostate; Z92.3 Personal history of irradiation; Z86.73 Personal history of transient ischemic attack (TIA), and cerebral infarction without residual deficits; D72.829 Elevated white blood cell count, unspecified; Z79.899 Other long term (current) drug therapy; Z88.1 Allergy status to other antibiotic agents; M10.9 Gout, unspecified; Z87.891 Personal history of nicotine dependence; R79.89 Other specified abnormal findings of blood chemistry; R06.02 Shortness of breath; Z20.822 Contact with and (suspected) exposure to COVID-19

== ENCOUNTER → 2021-05-17 | Outpatient (CLI) | payer MEDICARE ==
[~2021-05-17] MED LIST changes: +ALBU83IN NEB; +AMLO1TAB25 PO; +ATOR1TAB21 PO; +AZEL0.055 NARES; +CYCL-707 PO; +LEVO750T13 PO; +PRED20TA PO; +PRED5PAK2 PO; +SYMB16INH INH; +TIOT18INH INH
[2021-05-17 17:18] LABS: CALCIUM LEVEL 9.7 MG/DL (8.8-10.2); CREATININE FOR GFR 1.5 MG/DL (0.70-1.30); GLOMERULAR FILTRATION RATE 50.5 (>49); POTASSIUM SERUM 4.5 MEQ/L (3.5-5.1)
== END ==
LOC: M LAB 15:46
PROVIDERS: ATTEND Internal Medicine Pulmonary Disease
DX: J47.9 Bronchiectasis, uncomplicated (principal)

== ENCOUNTER → 2021-05-18 | Outpatient (CLI) | payer MEDICARE, MEDICAID ==
[~2021-05-18] MED LIST changes: +ISOVUE-370 76% 100ML VIAL As Ordered ONE
--- NOTE | 2021-05-18 17:11 | REP ---
INDICATION: COUGH, ABN CHEST CT. COMPARISON: 03/10/2021 TECHNIQUE: Chest CT with IV contrast. FINDINGS: There is a right lower lobe infiltrate similar in appearance to the prior study. This could be persistent or recurrent. There are no interim studies. There is a 7 mm lung nodule in the superior segment of the right lower lobe on image 44, not present previously. There are no pleural effusions. Neck the lung vuong are otherwise unchanged. There is a borderline enlarged anterior mediastinal node lateral to the aortic arch measuring up to 8 mm short axis. This measured 5 mm previously and was normal size previously. There are several other normal size anterior mediastinal nodes. There is no hilar lymph node enlargement. There is no axillary lymph node enlargement. The thoracic aorta is unremarkable. Cardiac size is normal. There is no pericardial effusion. Upper abdomen: There are 2 small gallbladder calculi. These are unchanged. The gallbladder is otherwise unremarkable. The visualized hepatic parenchyma, pancreas and spleen are unremarkable. The adrenals are unremarkable. The renal upper poles demonstrate bilateral Bosniak type 1 renal cortical cysts, not significantly changed. IMPRESSION: Right lower lobe infiltrate, unchanged, persistent versus recurrent. There are no interim studies from 03/10/2021. New left lower lobe 7 mm lung nodule as described. Borderline enlargement of an anterior mediastinal node as an interval change. Cholelithiasis. Bilateral Bosniak type 1 renal cysts. <Electronically signed by Harvey Abernathy > 05/18/21 [id number]
== END ==
LOC: M RAD 15:29
PROVIDERS: ATTEND Nurse Practitioner Adult Health
DX: R91.8 Other nonspecific abnormal finding of lung field (principal); K80.20 Calculus of gallbladder without cholecystitis without obstruction; N28.1 Cyst of kidney, acquired
CPT/HCPCS: 71260; Q9967

== ENCOUNTER → 2021-06-08 | Outpatient (CLI) | payer MEDICARE, MEDICAID ==
[~2021-06-08] MED LIST changes: +PROV108A INH; +QUET1TAB17 PO; -QUET25TA3 PO
--- NOTE | 2021-06-08 15:55 | REPVR ---
PROCEDURE INFORMATION: Exam: CT Neck With Contrast Exam date and time: 06/08/2021 2:33 PM Age: 60 years old Clinical indication: Neck pain; Additional info: Activity, choking game TECHNIQUE: Imaging protocol: Computed tomography images of the neck with contrast. Radiation optimization: All CT scans at this facility use at least one of these dose optimization techniques: automated exposure control; mA and/or kV adjustment per patient size (includes targeted exams where dose is matched to clinical indication); or iterative reconstruction. Contrast material: ISOVUE 370; Contrast volume: 75 ml; Contrast route: INTRAVENOUS (IV); COMPARISON: CT Chest with contrast 05/18/2021 3:52 PM FINDINGS: Brain: THE VISUALIZED BASE OF THE BRAIN DEMONSTRATES DIFFUSE INVOLUTIONAL CHANGE. Cerebral ventricles: MILD PROMINENCE OF THE VENTRICLES. VENTRICULOSTOMY SHUNT PARTIALLY VISUALIZED. VENTRICULOSTOMY SHUNT DESCENDS ON THE RIGHT. Orbital cavity: THE ORBITS ARE INTACT. Nasopharynx: Unremarkable. Oropharynx: Unremarkable. No significant tonsillar enlargement. Hypopharynx: Unremarkable. Larynx: Unremarkable. Normal epiglottis. Retropharyngeal space: Unremarkable. Submandibular/Parotid glands: Normal. Glands are normal in size. Thyroid: DIMINUTIVE THYROID. Lymph nodes: NO LYMPHADENOPATHY. Trachea: Visualized trachea is unremarkable. Lungs: LUNG APICES ARE CLEAR. Bones/joints: DEGENERATIVE CHANGES ALONG THE SPINE WITHOUT ACUTE FRACTURE. THE HYOID BONE IS NOT FRACTURED. Vasculature: CAROTID VASCULAR CALCIFICATIONS CAN BE FOLLOWED WITH ULTRASOUND. THE CAROTIDS ARE SOMEWHAT MEDIALIZED. Soft tissues: NO DOMINANT NECK MASS. IMPRESSION: No acute abnormality. Electronically signed by: Cheng Laura On 06/08/2021 15:55:12 PM
== END ==
LOC: M RAD 14:11
PROVIDERS: ATTEND Internal Medicine Pulmonary Disease
DX: M54.2 Cervicalgia (principal)
CPT/HCPCS: 70491; Q9967

== ENCOUNTER 2021-06-09 10:05 | Emergency (ER) | payer MEDICARE, MEDICAID ==
[~2021-06-09] VITALS: Ht 172.7 cm; Wt 93.2 kg
[~2021-06-09 10:05] MED LIST changes: -ISOVUE-370 76% 100ML VIAL As Ordered ONE; -PROV108A INH
--- NOTE | 2021-06-09 11:29 | REP ---
INDICATION: DYSPNEA/COUGH COMPARISON: 03/10/2021 TECHNIQUE: Portable AP view of the chest FINDINGS: The mediastinum and cardiac silhouette are stable and within normal limits for portable technique. The lung vuong are essentially clear without acute consolidation, effusion, or pneumothorax. Very minimal residual right basilar atelectasis cannot be excluded and should be correlated with physical examination and auscultation. Skeletal structures are intact. Right-sided ventriculoperitoneal shunt again noted. IMPRESSION: No acute cardiopulmonary process appreciated. Very minimal residual right basilar atelectasis cannot be excluded and should be correlated with physical examination and auscultation. <Electronically signed by Rui Egan > 06/09/21 [id number]
[2021-06-09 12:08] LABS: VENOUS BASE EXCESS -4.4 (-2.0-2.0); VENOUS HCO3 21.2 MEQ/L (23.0-27.0); VENOUS O2 SATURATION 88.9 % (60.0-80.0); VENOUS PH 7.332 UNITS (7.330-7.430); VENOUS STANDARD HCO3 20.7 MEQ/L; VENOUS TOTAL CO2 22.5 MEQ/L (24.0-28.0)
[2021-06-09 12:14] LABS: BASO # 0.1 10^3/uL (0.0-0.2); BASO % 1.3 % (0.0-1.0); EOS # 1.8 10^3/uL (0.0-0.5); HEMATOCRIT 52.8 % (42.0-52.0); LYMPH # 2.1 10^3/uL (1.5-5.0); LYMPH % 22.9 % (24.0-44.0); MEAN CORPUSCULAR HEMOGLOBIN 30.3 pg (27.0-33.0); MEAN CORPUSCULAR HGB CONC 32.2 g/dl (32.0-36.5); MEAN CORPUSCULAR VOLUME 94.1 fl (80.0-96.0); MONO # 0.7 10^3/uL (0.0-0.8); MONO % 7.7 % (2.0-8.0); NEUTROPHILS # 4.3 10^3/uL (1.5-8.5); NEUTROPHILS % 47.5 % (36.0-66.0); PLATELET COUNT, AUTOMATED 254 10^3/uL (150-450); RED BLOOD COUNT 5.61 10^6/uL (4.30-6.10)
[2021-06-09 12:57] LABS: ALBUMIN 3.4 GM/DL (3.2-5.2); BILIRUBIN,DIRECT 0.1 MG/DL (0.0-0.2); BILIRUBIN,TOTAL 0.5 MG/DL (0.2-1.0); CREATININE FOR GFR 1.76 MG/DL (0.70-1.30); POTASSIUM SERUM 4.8 MEQ/L (3.5-5.1); THYROID STIMULATING HORMONE 0.425 uIU/ML (0.358-3.740); TOTAL PROTEIN 6.7 GM/DL (6.4-8.2)
[2021-06-09] MEDS ORDERED: ISOVUE-370 76% 100ML VIAL As Ordered ONE (13:18)
[2021-06-09] MEDS ORDERED: ALBUTEROL 90 MCG/ACT 8GM HFA INHALER INH ONE (13:35)
--- NOTE | 2021-06-09 14:31 | REP ---
INDICATION: cough COMPARISON: 05/18/2021 TECHNIQUE: Axial noncontrast images from the thoracic inlet to the upper abdomen with coronal and sagittal reformations. This CT examination was performed using the following dose reduction techniques: Automated exposure control, adjustment of mA and/or kv according to the patient's size, and use of iterative reconstruction technique. FINDINGS: Respiratory motion artifact limits evaluation. There appears to be stable diffuse chronic interstitial changes and very minimal residual ground-glass opacities to the right lower lobe which is consistent with resolving pneumonia as compared with 05/18/2021 examination. No obvious acute consolidation. No effusion. No pneumothorax. Tracheobronchial tree is patent. No significant axillary, hilar, or mediastinal adenopathy. Further evaluation of the mediastinum demonstrates normal stable appearance of the thoracic aorta, pulmonary vasculature and heart/pericardium. Very minimal atherosclerotic changes to the aorta and coronary arteries again noted. Surrounding musculoskeletal structures intact and without acute osseous abnormality. Limited upper abdomen demonstrates normal bilateral adrenal glands and evidence for cholelithiasis. IMPRESSION: 1. Chronic interstitial changes with improved near complete resolution to the previously noted right lower lobe infiltrate. 2. No new acute pleuroparenchymal or mediastinal process appreciated. <Electronically signed by Rui Egan > 06/09/21 1993
[2021-06-09] MEDS ORDERED: PROV108A INH (14:38)
[2021-06-09 14:45] VITALS: BP 116/76
--- NOTE | 2021-06-09 20:29 | ECGEPIP ---
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
== END 2021-06-09 14:50 | disposition home or self-care (01) ==
LOC: M ED 10:05
DX: R05 Cough (principal); I10 Essential (primary) hypertension; J44.9 Chronic obstructive pulmonary disease, unspecified; E78.5 Hyperlipidemia, unspecified; Z86.73 Personal history of transient ischemic attack (TIA), and cerebral infarction without residual deficits; F17.200 Nicotine dependence, unspecified, uncomplicated; Z88.1 Allergy status to other antibiotic agents; Z88.2 Allergy status to sulfonamides; Z79.51 Long term (current) use of inhaled steroids; Z79.899 Other long term (current) drug therapy

== ENCOUNTER → 2021-07-17 | Outpatient (REF) | payer MEDICARE, MEDICAID ==
[~2021-07-17] MED LIST changes: +PROV108A INH
== END ==
LOC: M LAB REF 17:31
PROVIDERS: ATTEND Internal Medicine Nephrology
DX: N18.32 Chronic kidney disease, stage 3b (principal)

== ENCOUNTER → 2021-08-31 | Outpatient (CLI) | payer MEDICARE, MEDICAID ==
--- NOTE | 2021-08-31 17:24 | REP ---
INDICATION: ABN FINDINGS OF LUNG FIELD COMPARISON: 06/09/2021, 05/18/2021 TECHNIQUE: Axial noncontrast images from the thoracic inlet to the upper abdomen with coronal and sagittal reformations. This CT examination was performed using the following dose reduction techniques: Automated exposure control, adjustment of mA and/or kv according to the patient's size, and use of iterative reconstruction technique. FINDINGS: Evaluation is limited due to significant respiratory motion artifact. However, the previously noted right lower lobe consolidation/atelectasis has completely resolved. Mild chronic age-related interstitial changes are suggested. No obvious new acute consolidation. No effusion or pneumothorax identified. Mediastinum demonstrates stable appearance to the thoracic aorta and coronary arteries. No cardiomegaly or pericardial effusion. Tracheobronchial tree is patent. No axillary, hilar, or mediastinal adenopathy. IMPRESSION: No acute mediastinal or pleuroparenchymal process. Previously noted right lower lobe consolidation/atelectasis resolved. <Electronically signed by Rui Egan > 08/31/21 [id number]
== END ==
LOC: M PLAIMG 14:29
PROVIDERS: ATTEND Internal Medicine Pulmonary Disease
DX: R91.8 Other nonspecific abnormal finding of lung field (principal)

== ENCOUNTER 2021-12-27 12:12 | Emergency (ER) | payer MEDICARE, MEDICAID ==
[~2021-12-27] VITALS: Ht 167.6 cm; Wt 100.0 kg
[2021-12-27] MEDS ORDERED: IPRATROPIUM HFA INHALER 12.9 GRAMS (ATROVENT HFA) INH STA (17:24)
[2021-12-27] MEDS ORDERED: methylPREDNISolone 125MG 2ML VIAL IV ONE (17:25)
[2021-12-27 18:01] LABS: ABG BASE EXCESS -1.7 (-2.0-2.0); ABG HCO3 22.1 MEQ/L (22.0-26.0); ABG O2 SATURATION 95.6 % (95.0-99.0); ABG PARTIAL PRESSURE CO2 35.4 mmHg (35.0-45.0); ABG PARTIAL PRESSURE O2 76.8 mmHg (75.0-100.0); ABG TOTAL CO2 23.2 MEQ/L (23.0-31.0); ABG pH (ARTERIAL) 7.413 UNITS (7.350-7.450)
[2021-12-27 18:28] LABS: BASO # 0.1 10^3/uL (0.0-0.2); BASO % 0.8 % (0.0-1.0); EOS # 1.9 10^3/uL (0.0-0.5); EOS % 15.9 % (0.0-3.0); HEMATOCRIT 53.9 % (42.0-52.0); HEMOGLOBIN 17.9 g/dl (13.5-17.5); LYMPH # 2.8 10^3/uL (1.5-5.0); LYMPH % 23.7 % (24.0-44.0); MEAN CORPUSCULAR HEMOGLOBIN 31.2 pg (27.0-33.0); MEAN CORPUSCULAR HGB CONC 33.2 g/dl (32.0-36.5); MEAN CORPUSCULAR VOLUME 93.9 fl (80.0-96.0); MONO # 0.9 10^3/uL (0.0-0.8); MONO % 7.2 % (2.0-8.0); NEUTROPHILS # 6.2 10^3/uL (1.5-8.5); NEUTROPHILS % 52.1 % (36.0-66.0); PLATELET COUNT, AUTOMATED 291 10^3/uL (150-450); RED BLOOD COUNT 5.74 10^6/uL (4.30-6.10)
[2021-12-27 18:47] LABS: C REACTIVE PROTEIN QUANTITATIV 0.3 MG/DL (0.00-0.30); CALCIUM LEVEL 9.7 MG/DL (8.8-10.2); CREATININE FOR GFR 1.76 MG/DL (0.70-1.30); GLOMERULAR FILTRATION RATE 41.8 (>49); POTASSIUM SERUM 4.4 MEQ/L (3.5-5.1)
[2021-12-27 18:47] LABS: CK-MB VALUE MASS 3.5 NG/ML (<3.6); MB/CK RELATIVE INDEX 1.89 (< OR =4)
[2021-12-27] MEDS ORDERED: ISOVUE-370 76% 100ML VIAL As Ordered ONE (18:56)
[2021-12-27 19:01] LABS: ERYTHROCYTE SEDIMENTATION RATE 1 mm/hr (0-20)
[2021-12-27] MEDS ORDERED: NS 1,000 ML IV ONE (19:20)
[2021-12-27] MEDS ORDERED: KETOROLAC 30 MG/ML 1ML VIAL IV ONE (19:35)
[2021-12-27] MEDS ORDERED: IPRATROPIUM 0.5MG/ALBUTEROL 2.5MG INH SOL UD 3ML (DUONEB) NEB ONE (19:45)
[2021-12-27] MEDS ORDERED: BENZONATATE 100MG CAPSULE PO ONE (19:55)
[2021-12-27 20:13] LABS: CK-MB VALUE MASS 3.7 NG/ML (<3.6); MB/CK RELATIVE INDEX 2.08 (< OR =4)
[2021-12-27 20:32] VITALS: BP 163/86
[2021-12-27] MEDS ORDERED: PRED20TA PO (20:33)
[2021-12-27] MEDS ORDERED: LEVO750T14 PO (20:33)
== END 2021-12-27 20:46 | disposition home or self-care (01) ==
LOC: M ED 12:12
DX: J44.1 Chronic obstructive pulmonary disease with (acute) exacerbation (principal); I10 Essential (primary) hypertension; E78.5 Hyperlipidemia, unspecified; Z86.73 Personal history of transient ischemic attack (TIA), and cerebral infarction without residual deficits; Z98.2 Presence of cerebrospinal fluid drainage device; Z79.899 Other long term (current) drug therapy; Z88.1 Allergy status to other antibiotic agents; Z88.2 Allergy status to sulfonamides; Z88.8 Allergy status to other drugs, medicaments and biological substances; F17.210 Nicotine dependence, cigarettes, uncomplicated
CPT/HCPCS: 36600; 71046; 71260; 80048; 82550; 82553; 82803; 83605; 83880; 84484; 85025; 85652; 86140; 87798; 93005; 94640; 96361; 96374; 96375; 99284; J1885; J2930; Q9967

== ENCOUNTER → 2022-02-01 | Outpatient (REF) | payer MEDICARE, MEDICAID ==
[~2022-02-01] MED LIST changes: +LEVO750T14 PO
[2022-02-01 19:19] LABS: BACTERIA, URINE AUTO NEGATIVE (NEGATIVE); MUCUS, URINE SMALL (NEGATIVE); RBC, URINE AUTO 6 /HPF (0-3); SQUAMOUS EPITHELIAL CELL UR AU 0 /HPF (0-6); WBC, URINE AUTO 3 /HPF (0-3)
== END ==
LOC: M LAB REF 16:45
PROVIDERS: ATTEND Internal Medicine Nephrology
DX: R31.21 Asymptomatic microscopic hematuria (principal)

== ENCOUNTER → 2022-02-14 | Outpatient (CLI) | payer MEDICARE, MEDICAID ==
[2022-02-14 19:22] LABS: APPEARANCE, URINE HAZY (CLEAR); BACTERIA, URINE AUTO NEGATIVE (NEGATIVE); BILIRUBIN, URINE AUTO NEGATIVE (NEGATIVE); BLOOD, URINE BLOOD NEGATIVE (NEGATIVE); COLOR, URINE YELLOW (YELLOW); GLUCOSE, URINE (UA) AUTO NEGATIVE (NEGATIVE); KETONE, URINE AUTO NEGATIVE (NEGATIVE); LEUKOCYTE ESTERASE, URINE AUTO NEGATIVE (NEGATIVE); MUCUS, URINE SMALL (NEGATIVE); NITRITE, URINE AUTO NEGATIVE (NEGATIVE); PROTEIN, URINE AUTO 2+ mg/dL (NEGATIVE); RBC, URINE AUTO 0 /HPF (0-3); SPECIFIC GRAVITY URINE AUTO 1.018 (1.002-1.035); SQUAMOUS EPITHELIAL CELL UR AU 0 /HPF (0-6); UROBILINOGEN, URINE AUTO 0.2 mg/dL (0.0-2.0); WBC, URINE AUTO 3 /HPF (0-3)
== END ==
LOC: M PLALAB 15:26
PROVIDERS: ATTEND Nurse Practitioner Women's Health
DX: Z85.46 Personal history of malignant neoplasm of prostate (principal)

== ENCOUNTER 2022-06-01 17:16 | Emergency (ER) | payer MEDICARE, MEDICAID ==
[~2022-06-01] VITALS: Ht 175.3 cm; Wt 109.1 kg
[~2022-06-01 17:16] MED LIST changes: +ALBU2.5V10 NEB; -ALBU83IN NEB; +LEVO1TAB40 PO; -LEVO750T13 PO
[2022-06-01 18:11] LABS: BASO # 0.1 10^3/uL (0.0-0.2); BASO % 0.7 % (0.0-1.0); EOS # 0.4 10^3/uL (0.0-0.5); EOS % 4.4 % (0.0-3.0); HEMATOCRIT 53.9 % (42.0-52.0); HEMOGLOBIN 18.3 g/dl (13.5-17.5); LYMPH # 1.4 10^3/uL (1.5-5.0); LYMPH % 17.3 % (24.0-44.0); MEAN CORPUSCULAR HEMOGLOBIN 31.1 pg (27.0-33.0); MEAN CORPUSCULAR VOLUME 91.5 fl (80.0-96.0); MONO # 0.5 10^3/uL (0.0-0.8); MONO % 5.8 % (2.0-8.0); NEUTROPHILS # 5.9 10^3/uL (1.5-8.5); NEUTROPHILS % 71.2 % (36.0-66.0); PLATELET COUNT, AUTOMATED 257 10^3/uL (150-450); RED BLOOD COUNT 5.89 10^6/uL (4.30-6.10); WHITE BLOOD COUNT 8.3 10^3/uL (4.0-10.0)
[2022-06-01 18:40] LABS: ALBUMIN 3.9 GM/DL (3.2-5.2); BILIRUBIN,DIRECT 0.2 MG/DL (0.0-0.2); BILIRUBIN,TOTAL 0.5 MG/DL (0.2-1.0); CALCIUM LEVEL 9.6 MG/DL (8.8-10.2); CREATININE FOR GFR 1.62 MG/DL (0.70-1.30); ETHYL ALCOHOL (ETHANOL) 0.005 % (0.000-0.010); POTASSIUM SERUM 4.4 MEQ/L (3.5-5.1); THYROID STIMULATING HORMONE 1.85 uIU/ML (0.358-3.740)
[2022-06-01 19:17] LABS: CK-MB VALUE MASS 2.1 NG/ML (<3.6); MB/CK RELATIVE INDEX 1.76 (< OR =4)
[2022-06-01 20:43] LABS: RSV AMPLIFICATION NEGATIVE (NEGATIVE)
[2022-06-01 23:10] VITALS: BP 136/84
== END 2022-06-01 23:16 | disposition home or self-care (01) ==
LOC: M ED 17:16 → EDBD 17:16 → M ED 23:16
DX: E86.0 Dehydration (principal); T67.5XXA Heat exhaustion, unspecified, initial encounter; I10 Essential (primary) hypertension; J44.9 Chronic obstructive pulmonary disease, unspecified; N18.30 Chronic kidney disease, stage 3 unspecified; E78.5 Hyperlipidemia, unspecified; F32.A Depression, unspecified; G91.9 Hydrocephalus, unspecified; N40.0 Benign prostatic hyperplasia without lower urinary tract symptoms; Z85.46 Personal history of malignant neoplasm of prostate; Z92.3 Personal history of irradiation; Z98.2 Presence of cerebrospinal fluid drainage device; Z88.1 Allergy status to other antibiotic agents; Z88.2 Allergy status to sulfonamides; Z88.8 Allergy status to other drugs, medicaments and biological substances; Z79.899 Other long term (current) drug therapy; Z79.890 Hormone replacement therapy

== ENCOUNTER → 2022-08-06 | Outpatient (REF) | payer MEDICARE, MEDICAID ==
[~2022-08-06] MED LIST changes: +ALBU6.7H6 INH; -PROV108A INH
[2022-08-06 17:38] LABS: OSMOLALITY URINE 495 MOSM/KG (50-1400)
[2022-08-06 19:02] LABS: SODIUM,RANDOM URINE 102 MEQ/L
== END ==
LOC: M LAB REF 17:04
PROVIDERS: ATTEND Internal Medicine Nephrology
DX: E87.0 Hyperosmolality and hypernatremia (principal)

== ENCOUNTER → 2022-09-12 | Outpatient (CLI) | payer MEDICARE, MEDICAID | LOC: M SOG 08:03 | PROVIDERS: ATTEND Orthopaedic Surgery Adult Reconstructive Orthopaedic Surgery | DX: M25.561 Pain in right knee (principal) ==

== ENCOUNTER 2022-12-19 12:59 | Emergency (ER) | payer MEDICARE, MEDICAID ==
[~2022-12-19] VITALS: Ht 170.2 cm; Wt 70.0 kg
[~2022-12-19 12:59] MED LIST changes: -PAXI40TA10 PO; +PAXI40TA12 PO
[2022-12-19] MEDS ORDERED: NORCO, ANEXSIA 5/325MG TABLET (HYDROcodone/ACETAMINOPHEN) PO ONE (17:35)
[2022-12-19] MEDS ORDERED: MIRA3350 PO (17:52)
[2022-12-19] MEDS ORDERED: HYDR-3713 PO (17:52)
[2022-12-19 18:04] VITALS: BP 122/73
== END 2022-12-19 18:05 | disposition home or self-care (01) ==
LOC: M ED 12:59
DX: S82.841A Displaced bimalleolar fracture of right lower leg, initial encounter for closed fracture (principal); H91.3 Deaf nonspeaking, not elsewhere classified; K21.9 Gastro-esophageal reflux disease without esophagitis; J44.9 Chronic obstructive pulmonary disease, unspecified; I10 Essential (primary) hypertension; C61 Malignant neoplasm of prostate; Y93.01 Activity, walking, marching and hiking; Z88.1 Allergy status to other antibiotic agents; Z88.2 Allergy status to sulfonamides; Z79.82 Long term (current) use of aspirin; Z79.811 Long term (current) use of aromatase inhibitors; Z79.52 Long term (current) use of systemic steroids; Z79.899 Other long term (current) drug therapy

== ENCOUNTER → 2022-12-20 | Outpatient (CLI) | payer MEDICARE, MEDICAID ==
[~2022-12-20] MED LIST changes: +HYDR-3713 PO; +MIRA3350 PO
== END ==
LOC: M SOG 15:02
PROVIDERS: ATTEND Orthopaedic Surgery Adult Reconstructive Orthopaedic Surgery
DX: S82.841A Displaced bimalleolar fracture of right lower leg, initial encounter for closed fracture (principal); Y93.9 Activity, unspecified; Y92.9 Unspecified place or not applicable

== ENCOUNTER → 2022-12-25 | Outpatient (CLI) | payer MEDICARE, MEDICAID | LOC: M SOG 08:09 | PROVIDERS: ATTEND Orthopaedic Surgery Adult Reconstructive Orthopaedic Surgery | DX: S82.841D Displaced bimalleolar fracture of right lower leg, subsequent encounter for closed fracture with routine healing (principal); Y93.9 Activity, unspecified; Y92.9 Unspecified place or not applicable ==

== ENCOUNTER → 2023-01-01 | Outpatient (CLI) | payer MEDICARE, MEDICAID | LOC: M SOG 08:08 | PROVIDERS: ATTEND Orthopaedic Surgery Adult Reconstructive Orthopaedic Surgery | DX: S82.841D Displaced bimalleolar fracture of right lower leg, subsequent encounter for closed fracture with routine healing (principal); X58.XXXD Exposure to other specified factors, subsequent encounter ==

== ENCOUNTER → 2023-01-08 | Outpatient (CLI) | payer MEDICARE, MEDICAID | LOC: M SOG 08:06 | PROVIDERS: ATTEND Orthopaedic Surgery Adult Reconstructive Orthopaedic Surgery | DX: S82.841D Displaced bimalleolar fracture of right lower leg, subsequent encounter for closed fracture with routine healing (principal); Y93.9 Activity, unspecified; Y92.9 Unspecified place or not applicable ==

== ENCOUNTER → 2023-01-31 | Outpatient (CLI) | payer MEDICARE, MEDICAID | LOC: M SOG 08:04 | PROVIDERS: ATTEND Orthopaedic Surgery | DX: S82.841D Displaced bimalleolar fracture of right lower leg, subsequent encounter for closed fracture with routine healing (principal); M85.871 Other specified disorders of bone density and structure, right ankle and foot; M77.31 Calcaneal spur, right foot ==

== ENCOUNTER → 2023-02-12 | Outpatient (CLI) | payer MEDICARE, MEDICAID | LOC: M RAD 13:13 | PROVIDERS: ATTEND Internal Medicine Pulmonary Disease | DX: Z12.2 Encounter for screening for malignant neoplasm of respiratory organs (principal); Z87.891 Personal history of nicotine dependence ==

== ENCOUNTER → 2023-03-19 | Outpatient (CLI) | payer MEDICARE, MEDICAID | LOC: M LAB 17:58 | PROVIDERS: ATTEND Physician Assistant | DX: Z85.46 Personal history of malignant neoplasm of prostate (principal) ==

== ENCOUNTER → 2023-04-17 | Outpatient (CLI) | payer MEDICAID, MEDICARE, OTHER | LOC: M RAD 12:39 | PROVIDERS: ATTEND Neurological Surgery | DX: G91.2 (Idiopathic) normal pressure hydrocephalus (principal) ==

== ENCOUNTER → 2023-09-26 | Outpatient (CLI) | payer MEDICARE | LOC: M PLAIMG 13:35 | PROVIDERS: ATTEND Neurological Surgery | DX: G91.2 (Idiopathic) normal pressure hydrocephalus (principal); G93.89 Other specified disorders of brain ==

== ENCOUNTER 2024-01-22 21:07 | Emergency (ER) | payer MEDICAID, MEDICARE ==
[~2024-01-22] VITALS: Ht 170.2 cm; Wt 84.1 kg
[2024-01-22] MEDS: ONDANSETRON 4MG 2ML VIAL IV ONE (21:52)
[2024-01-22] MEDS: NS 1,000 ML IV ONE (21:52)
[2024-01-22 21:58] VITALS: TEMP 97.9
[2024-01-22 22:04] LABS: BASO # 0.1 10^3/uL (0.0-0.2); BASO % 0.4 % (0.0-1.0); EOS # 0.3 10^3/uL (0.0-0.5); EOS % 2.8 % (0.0-3.0); HEMATOCRIT 56.5 % (42.0-52.0); HEMOGLOBIN 19.4 g/dl (13.5-17.5); LYMPH # 1.7 10^3/uL (1.5-5.0); LYMPH % 14.5 % (24.0-44.0); MEAN CORPUSCULAR HGB CONC 34.3 g/dl (32.0-36.5); MEAN CORPUSCULAR VOLUME 90.4 fl (80.0-96.0); MONO # 0.9 10^3/uL (0.0-0.8); MONO % 7.8 % (2.0-8.0); NEUTROPHILS # 8.5 10^3/uL (1.5-8.5); PLATELET COUNT, AUTOMATED 314 10^3/uL (150-450); RED BLOOD COUNT 6.25 10^6/uL (4.30-6.10); WHITE BLOOD COUNT 11.4 10^3/uL (4.0-10.0)
[2024-01-22 22:25] LABS: ALBUMIN 4.1 G/DL (3.2-5.2); BILIRUBIN,DIRECT 0.2 MG/DL (<0.4); BILIRUBIN,TOTAL 0.6 MG/DL (0.3-1.2); CALCIUM LEVEL 9.6 MG/DL (8.3-10.6); CK-MB VALUE MASS 2.5 NG/ML (<3.6); CREATININE FOR GFR 1.69 MG/DL (0.70-1.30); GLOMERULAR FILTRATION RATE 43.6 (>49); MB/CK RELATIVE INDEX 2.33 (< OR =4); POTASSIUM SERUM 5.3 MMOL/L (3.5-5.1)
[2024-01-22] MEDS ORDERED: ISOVUE-370 76% 100ML VIAL As Ordered ONE (22:40)
[2024-01-23] MEDS: KETOROLAC 30 MG/ML 1ML VIAL IV ONE (01:59)
[2024-01-23 03:01] VITALS: BP 163/80
[2024-01-23] MEDS ORDERED: ONDA4TAB6 PO (03:07)
[2024-01-23 03:22] VITALS: O2SAT 91
[2024-01-23] MEDS: LOPERAMIDE 2 MG CAPLET PO ONE (03:37)
== END 2024-01-23 03:57 | disposition home or self-care (01) ==
LOC: M ED 21:07
DX: A04.0 Enteropathogenic Escherichia coli infection (principal); R00.0 Tachycardia, unspecified; I45.81 Long QT syndrome; I10 Essential (primary) hypertension; M10.9 Gout, unspecified; N18.30 Chronic kidney disease, stage 3 unspecified; F10.10 Alcohol abuse, uncomplicated; Z88.1 Allergy status to other antibiotic agents; Z88.2 Allergy status to sulfonamides; Z86.79 Personal history of other diseases of the circulatory system; Z79.52 Long term (current) use of systemic steroids; Z79.811 Long term (current) use of aromatase inhibitors; Z79.83 Long term (current) use of bisphosphonates; Z79.899 Other long term (current) drug therapy
CPT/HCPCS: 74177; 80048; 80076; 82550; 82553; 83605; 83690; 84484; 85025; 87486; 87507; 87581; 87633; 87798; 93005; 93041; 96374; 96375; 99285; J1885; J2405; Q9967

== ENCOUNTER → 2024-03-10 | Outpatient (CLI) | payer MEDICARE, MEDICAID ==
[~2024-03-10] MED LIST changes: +ALBU8.5H INH; +BUDE2SUS3 INH; +BUPR-597 PO; -BUPR300T92 PO; +CIPR-249 PO; +FLOM0.4C39 PO; +FORM20VI2 INH; +METR-265 PO; +OMEP-173 PO; +ONDA4TAB6 PO; +OXYB-54 PO; +YUPE175S INH
== END ==
LOC: M RAD 12:19
PROVIDERS: ATTEND Internal Medicine Pulmonary Disease
DX: Z12.2 Encounter for screening for malignant neoplasm of respiratory organs (principal); Z87.891 Personal history of nicotine dependence

== ENCOUNTER 2024-04-21 09:13 | Emergency (ER) | payer MEDICARE, MEDICAID ==
[~2024-04-21] VITALS: Ht 175.3 cm; Wt 84.8 kg
[~2024-04-21 09:13] MED LIST changes: -AZEL0.055 NARES; +AZEL1SPR4 NARES; +ONDA-282 PO; -ONDA4TAB6 PO
[2024-04-21 10:04] LABS: VENOUS BASE EXCESS -2.2 (-2.0-2.0); VENOUS HCO3 21.9 MMOL/L (23.0-27.0); VENOUS O2 SATURATION 92.6 % (60.0-80.0); VENOUS PARTIAL PRESSURE CO2 36.3 mmHg (38.0-50.0); VENOUS PARTIAL PRESSURE O2 62.4 mmHg (30.0-50.0); VENOUS PH 7.398 UNITS (7.330-7.430); VENOUS STANDARD HCO3 22.5 MMOL/L
[2024-04-21 10:12] LABS: BASO % 0.4 % (0.0-1.0); EOS # 0.3 10^3/uL (0.0-0.5); EOS % 2.8 % (0.0-3.0); HEMATOCRIT 50.5 % (42.0-52.0); HEMOGLOBIN 16.9 g/dl (13.5-17.5); LYMPH # 1.5 10^3/uL (1.5-5.0); LYMPH % 15.9 % (24.0-44.0); MEAN CORPUSCULAR HEMOGLOBIN 31.1 pg (27.0-33.0); MEAN CORPUSCULAR HGB CONC 33.5 g/dl (32.0-36.5); MONO # 0.9 10^3/uL (0.0-0.8); MONO % 9.5 % (2.0-8.0); NEUTROPHILS # 6.5 10^3/uL (1.5-8.5); NEUTROPHILS % 71.1 % (36.0-66.0); PLATELET COUNT, AUTOMATED 250 10^3/uL (150-450); RED BLOOD COUNT 5.43 10^6/uL (4.30-6.10); WHITE BLOOD COUNT 9.2 10^3/uL (4.0-10.0)
[2024-04-21 10:46] LABS: ALBUMIN 3.6 G/DL (3.2-5.2); ALKALINE PHOSPHATASE 105 U/L (46-116); ALT/SGPT 17 U/L (7.0-40); AST/SGOT < 8 U/L (<34); BILIRUBIN,DIRECT 0.3 MG/DL (<0.4); BILIRUBIN,TOTAL 0.8 MG/DL (0.3-1.2); BLOOD UREA NITROGEN 20 MG/DL (9-23); CALCIUM LEVEL 9.7 MG/DL (8.3-10.6); CARBON DIOXIDE LEVEL 22 MMOL/L (20-31); CHLORIDE LEVEL 111 MMOL/L (98-107); CREATININE FOR GFR 1.37 MG/DL (0.70-1.30); GLOMERULAR FILTRATION RATE 55.5 (>49); GLUCOSE, FASTING 117 MG/DL (74-106); POTASSIUM SERUM 4.2 MMOL/L (3.5-5.1); SODIUM LEVEL 142 MMOL/L (136-145); TOTAL PROTEIN 6.4 G/DL (5.7-8.2)
[2024-04-21 10:47] LABS: THYROID STIMULATING HORMONE 0.948 uIU/ML (0.55-4.78)
[2024-04-21] MEDS ORDERED: ISOVUE-370 76% 100ML VIAL As Ordered ONE (11:12)
[2024-04-21] MEDS ORDERED: BACI1TAB4 PO (12:12)
[2024-04-21] MEDS ORDERED: HOME MED LIST COMPLETE! XX SCH (12:15)
[2024-04-21] MEDS: KETOROLAC 30 MG/ML 1ML VIAL IV ONE (14:13)
[2024-04-21 17:15] VITALS: TEMP 96.7; O2SAT 96
[2024-04-21 17:16] VITALS: BP 138/99
== END 2024-04-21 17:23 | disposition home or self-care (01) ==
LOC: EDBD 09:13 → M ED 09:13
DX: K80.66 Calculus of gallbladder and bile duct with acute and chronic cholecystitis without obstruction (principal); I45.81 Long QT syndrome; E78.5 Hyperlipidemia, unspecified; I10 Essential (primary) hypertension; J44.9 Chronic obstructive pulmonary disease, unspecified; Z79.51 Long term (current) use of inhaled steroids; Z79.899 Other long term (current) drug therapy
CPT/HCPCS: 71045; 71275; 74177; 80048; 80076; 82803; 83605; 83880; 84443; 84484; 85025; 87040; 87486; 87581; 87633; 87798; 93005; 93041; 94760; 96374; 99285; J1885; Q9967

== ENCOUNTER 2024-05-09 20:51 | Emergency (ER) | payer MEDICARE, MEDICAID ==
[~2024-05-09] VITALS: Ht 180.3 cm; Wt 84.5 kg
[~2024-05-09 20:51] MED LIST changes: +BACI1TAB4 PO
[2024-05-09 23:21] VITALS: O2SAT 95
[2024-05-09 23:22] VITALS: BP 161/91; TEMP 98.1
== END 2024-05-09 23:30 | disposition home or self-care (01) ==
LOC: M ED 20:51 → EDBD 20:51 → M ED 23:30
DX: S62.300A Unspecified fracture of second metacarpal bone, right hand, initial encounter for closed fracture (principal); Y92.410 Unspecified street and highway as the place of occurrence of the external cause; Y93.9 Activity, unspecified; Y99.9 Unspecified external cause status; W01.0XXA Fall on same level from slipping, tripping and stumbling without subsequent striking against object, initial encounter; Z88.1 Allergy status to other antibiotic agents; Z88.2 Allergy status to sulfonamides; Z88.8 Allergy status to other drugs, medicaments and biological substances; Z79.51 Long term (current) use of inhaled steroids; Z79.899 Other long term (current) drug therapy

== ENCOUNTER → 2024-05-12 | Outpatient (CLI) | payer MEDICARE, MEDICAID | LOC: M PLAIMG 07:54 | PROVIDERS: ATTEND Orthopaedic Surgery Hand Surgery | DX: S62.330A Displaced fracture of neck of second metacarpal bone, right hand, initial encounter for closed fracture (principal); Y93.9 Activity, unspecified; Y92.9 Unspecified place or not applicable ==

== ENCOUNTER 2024-05-21 12:24 | Day surgery (SDC) | payer MEDICARE, MEDICAID ==
[~2024-05-21] VITALS: Ht 177.8 cm; Wt 84.4 kg
[~2024-05-21 12:24] MED LIST changes: +ONDA-83 PO
[2024-05-21] MEDS ORDERED: LR 1,000 ML IV SCH ×2 (15:10→17:00)
[2024-05-21] MEDS ORDERED: SCOPOLAMINE 1MG TRANSDERMAL PATCH TOP ONE (15:10)
[2024-05-21] MEDS ORDERED: MIDAZOLAM INJ 2MG/2ML VIAL As Ordered ONE (15:36)
[2024-05-21] MEDS ORDERED: propofoL 200 MG/20 ML VIAL As Ordered ONE (15:37)
[2024-05-21] MEDS ORDERED: ONDANSETRON 4MG 2ML VIAL As Ordered ONE (15:37)
[2024-05-21] MEDS ORDERED: fentaNYL 100 MCG/2 ML INJECTION As Ordered ONE (15:37)
[2024-05-21] MEDS ORDERED: LIDOCAINE 2% 100MG/5ML SDV (FOR ANES.) As Ordered ONE (15:37)
[2024-05-21] MEDS ORDERED: ROCURONIUM BROMIDE 50MG/5ML VIAL As Ordered ONE (16:13)
[2024-05-21] MEDS: ceFAZolin SOD 2 GM in IV 1 EA IV ONE (16:25)
[2024-05-21] MEDS ORDERED: ACETAMINOPHEN 1000MG 100ML IV BAG As Ordered ONE (16:42)
[2024-05-21] MEDS ORDERED: SUGAMMADEX SODIUM 500 MG/5 ML VIAL (BRIDION) As Ordered ONE (16:54)
[2024-05-21] MEDS ORDERED: ePHEDrine SULFATE 25 MG/5 ML(5MG/ML) SYRINGE As Ordered ONE (16:55)
[2024-05-21] MEDS ORDERED: oxyCODONE 5MG TAB PO PRN (17:00)
[2024-05-21] MEDS ORDERED: fentaNYL 100 MCG/2 ML INJECTION IV PRN (17:00)
[2024-05-21] MEDS ORDERED: ONDANSETRON 4MG 2ML VIAL IV PRN (17:00)
[2024-05-21] MEDS ORDERED: HYDROMORPHONE HCL 0.5 MG/ 0.5 ML SYRINGE IV PRN (17:00)
[2024-05-21] MEDS ORDERED: KETOROLAC 60MG 2ML VIAL As Ordered ONE (17:03)
[2024-05-21] MEDS: BACITRACIN OINTMENT 30GM TUBE As Ordered ONE (17:03)
[2024-05-21 19:25] VITALS: BP 152/88; TEMP 98.6; O2SAT 99
== END 2024-05-21 19:38 | disposition home or self-care (01) ==
LOC: M SDC 12:24
PROVIDERS: ATTEND Orthopaedic Surgery Hand Surgery
DX: S62.330A Displaced fracture of neck of second metacarpal bone, right hand, initial encounter for closed fracture (principal); X58.XXXA Exposure to other specified factors, initial encounter; Y92.9 Unspecified place or not applicable; Y93.9 Activity, unspecified

== ENCOUNTER 2024-05-23 15:12 | Inpatient (IN) | payer MEDICARE, MEDICAID ==
[~2024-05-23] VITALS: Ht 167.6 cm; Wt 118.2 kg
[2024-05-23] MEDS ORDERED: OXYC1TAB23 PO (16:56)
[2024-05-23] MEDS ORDERED: FAMO40TA3 PO (16:56)
[2024-05-23] MEDS ORDERED: LUNE2TAB28 PO (16:56)
[2024-05-23] MEDS ORDERED: HOME MED LIST COMPLETE! XX SCH (17:00)
[2024-05-23 17:38] LABS: HEMATOCRIT 49.5 % (42.0-52.0); HEMOGLOBIN 16.6 g/dl (13.5-17.5); MEAN CORPUSCULAR HEMOGLOBIN 30.9 pg (27.0-33.0); MEAN CORPUSCULAR HGB CONC 33.5 g/dl (32.0-36.5); MEAN CORPUSCULAR VOLUME 92.2 fl (80.0-96.0); PLATELET COUNT, AUTOMATED 251 10^3/uL (150-450); RED BLOOD COUNT 5.37 10^6/uL (4.30-6.10); WHITE BLOOD COUNT 7.1 10^3/uL (4.0-10.0)
[2024-05-23 18:00] LABS: ETHYL ALCOHOL (ETHANOL) 0.004 % (0.000-0.010)
[2024-05-23 18:02] LABS: ALBUMIN 3.8 G/DL (3.2-5.2); ALKALINE PHOSPHATASE 125 U/L (46-116); ALT/SGPT 16 U/L (7.0-40); AST/SGOT 13 U/L (<34); BILIRUBIN,DIRECT 0.1 MG/DL (<0.4); BILIRUBIN,TOTAL 0.4 MG/DL (0.3-1.2); BLOOD UREA NITROGEN 21 MG/DL (9-23); CALCIUM LEVEL 9.1 MG/DL (8.3-10.6); CARBON DIOXIDE LEVEL 23 MMOL/L (20-31); CHLORIDE LEVEL 110 MMOL/L (98-107); CREATININE FOR GFR 1.38 MG/DL (0.70-1.30); GLOMERULAR FILTRATION RATE 55.1 (>49); GLUCOSE, FASTING 98 MG/DL (74-106); POTASSIUM SERUM 4.5 MMOL/L (3.5-5.1); SALICYLATE LEVEL < 3.0 MG/DL (<30); SODIUM LEVEL 138 MMOL/L (136-145); TOTAL PROTEIN 6.7 G/DL (5.7-8.2)
[2024-05-23 18:04] LABS: THYROID STIMULATING HORMONE 0.712 uIU/ML (0.55-4.78)
[2024-05-23 21:05] LABS: AMPHETAMINES LEVEL URINE NEGATIVE (NEGATIVE)
[2024-05-23 21:06] LABS: BARBITURATES URINE NEGATIVE (NEGATIVE); BENZODIAZEPINES URINE NEGATIVE (NEGATIVE); CANNABINOIDS URINE NEGATIVE (NEGATIVE); COCAINE METABOLITE URINE NEGATIVE (NEGATIVE); METHADONE URINE NEGATIVE (NEGATIVE); OPIATES URINE NEGATIVE (NEGATIVE); PHENCYCLIDINE URINE NEGATIVE (NEGATIVE)
[2024-05-23] MEDS ORDERED: ACETAMINOPHEN *IV* 1,000 MG in IV 1 EA IV PRN (21:30)
[2024-05-23] MEDS ORDERED: ALBUTEROL 90 MCG/ACT 8GM HFA INHALER INH PRN (22:20)
[2024-05-23] MEDS ORDERED: FORMOTEROL FUMARATE 20 MCG/2 ML INHALATION SOLUTION (PERFOROMIST) INH PRN (22:20)
[2024-05-23] MEDS ORDERED: ONDANSETRON 4MG TAB PO PRN (22:20)
[2024-05-24] MEDS: ATORVASTATIN 20 MG TAB PO SCH (02:12)
[2024-05-24] MEDS: QUEtiapine FUMARATE 25 MG TAB PO PRN (04:41)
[2024-05-24 06:58] LABS: HEMATOCRIT 47.4 % (42.0-52.0); HEMOGLOBIN 15.7 g/dl (13.5-17.5); MEAN CORPUSCULAR HEMOGLOBIN 30.8 pg (27.0-33.0); MEAN CORPUSCULAR HGB CONC 33.1 g/dl (32.0-36.5); MEAN CORPUSCULAR VOLUME 92.9 fl (80.0-96.0); PLATELET COUNT, AUTOMATED 245 10^3/uL (150-450); WHITE BLOOD COUNT 7.5 10^3/uL (4.0-10.0)
[2024-05-24 07:20] LABS: ALBUMIN 3.5 G/DL (3.2-5.2); BILIRUBIN,TOTAL 0.4 MG/DL (0.3-1.2); CALCIUM LEVEL 8.9 MG/DL (8.3-10.6); CREATININE FOR GFR 1.33 MG/DL (0.70-1.30); GLOMERULAR FILTRATION RATE 57.4 (>49); POTASSIUM SERUM 4.1 MMOL/L (3.5-5.1); TOTAL PROTEIN 6.1 G/DL (5.7-8.2)
[2024-05-24] MEDS ORDERED: ACET1TAB55 PO (08:08)
[2024-05-24 09:21] LABS: C REACTIVE PROTEIN QUANTITATIV < 0.40 MG/DL (<1.0)
[2024-05-24 09:30] LABS: PROCALCITONIN 0.08 ng/ml
[2024-05-24 09:31] LABS: ALBUMIN 3.6 G/DL (3.2-5.2); ALKALINE PHOSPHATASE 111 U/L (46-116); ALT/SGPT 13 U/L (7.0-40); AST/SGOT 14 U/L (<34); BILIRUBIN,TOTAL 0.4 MG/DL (0.3-1.2); BLOOD UREA NITROGEN 19 MG/DL (9-23); CALCIUM LEVEL 9.5 MG/DL (8.3-10.6); CARBON DIOXIDE LEVEL 24 MMOL/L (20-31); CHLORIDE LEVEL 111 MMOL/L (98-107); CREATININE FOR GFR 1.33 MG/DL (0.70-1.30); GLOMERULAR FILTRATION RATE 57.4 (>49); GLUCOSE, FASTING 91 MG/DL (74-106); POTASSIUM SERUM 4.4 MMOL/L (3.5-5.1); SODIUM LEVEL 141 MMOL/L (136-145); TOTAL PROTEIN 6.5 G/DL (5.7-8.2)
[2024-05-24] MEDS: FAMOTIDINE 20 MG TAB PO SCH (09:36)
[2024-05-24] MEDS: OMEPRAZOLE 20MG CAP PO SCH (09:36)
[2024-05-24] MEDS: ASPIRIN 81MG CHEW TABLET PO SCH (09:36)
[2024-05-24] MEDS: PARoxetine 20MG TABLET PO SCH (09:36)
[2024-05-24] MEDS: oxyBUTYnin *DITROPAN XL* 5 MG TABCR PO SCH (09:36)
[2024-05-24] MEDS: HEPARIN SOD (PORCINE) 5000UNITS/ML 1ML VIAL/SYRINGE SQ SCH (09:37)
[2024-05-24] MEDS: buPROPion **XL** TABLET 150MG (WELLBUTRIN XL) PO SCH (09:37)
[2024-05-24] MEDS: allopurinoL 100 MG TAB PO SCH (09:37)
[2024-05-24 12:25] LABS: BASO # 0.1 10^3/uL (0.0-0.2); BASO % 0.9 % (0.0-1.0); EOS # 0.5 10^3/uL (0.0-0.5); EOS % 7.1 % (0.0-3.0); HEMATOCRIT 49.8 % (42.0-52.0); HEMOGLOBIN 16.6 g/dl (13.5-17.5); LYMPH # 2.3 10^3/uL (1.5-5.0); LYMPH % 34.6 % (24.0-44.0); MEAN CORPUSCULAR HEMOGLOBIN 30.6 pg (27.0-33.0); MEAN CORPUSCULAR HGB CONC 33.3 g/dl (32.0-36.5); MEAN CORPUSCULAR VOLUME 91.9 fl (80.0-96.0); MONO # 0.7 10^3/uL (0.0-0.8); NEUTROPHILS # 3.2 10^3/uL (1.5-8.5); NEUTROPHILS % 47.1 % (36.0-66.0); PLATELET COUNT, AUTOMATED 231 10^3/uL (150-450); RED BLOOD COUNT 5.42 10^6/uL (4.30-6.10); WHITE BLOOD COUNT 6.7 10^3/uL (4.0-10.0)
[2024-05-24 12:38] LABS: ERYTHROCYTE SEDIMENTATION RATE 2 mm/hr (0-20)
[2024-05-24 14:20] VITALS: BP 167/82; TEMP 97.3; O2SAT 94
[2024-05-24 15:00] VITALS: BP 136/82
[2024-05-24 21:03] VITALS: BP 160/85; TEMP 98.1; O2SAT 99
[2024-05-25 04:06] VITALS: BP 151/82; TEMP 98.4; O2SAT 93
[2024-05-25] MEDS: ACETAMINOPHEN TAB 650MG DOSE (2X325MG) PO PRN (07:44)
[2024-05-25 12:00] VITALS: BP 152/104; TEMP 97.7; O2SAT 96
[2024-05-25] MEDS: ACETAMINOPHEN 500 MG TAB PO PRN (20:52)
[2024-05-25 21:02] VITALS: BP 152/78; TEMP 98.1; O2SAT 93
[2024-05-26 04:00] VITALS: BP 145/84; TEMP 97.9; O2SAT 95
[2024-05-26 12:00] VITALS: BP 149/91; TEMP 97.9; O2SAT 97
[2024-05-26 19:50] VITALS: BP 126/58; TEMP 97.7; O2SAT 95
[2024-05-27 03:50] VITALS: BP 163/93; TEMP 97.7; O2SAT 93
[2024-05-27 12:00] VITALS: BP 147/99; TEMP 97.7; O2SAT 95
[2024-05-27 20:00] VITALS: BP 156/83; TEMP 98; O2SAT 96
[2024-05-28 03:24] VITALS: BP 145/87; TEMP 97.7; O2SAT 96
[2024-05-28 12:00] VITALS: BP 125/73; TEMP 97.3; O2SAT 90
[2024-05-28 19:37] VITALS: BP 140/83; TEMP 97.7; O2SAT 95
[2024-05-29 03:46] VITALS: BP 156/90; TEMP 97.5; O2SAT 95
[2024-05-29 07:07] LABS: HEMATOCRIT 52.2 % (42.0-52.0); HEMOGLOBIN 17.4 g/dl (13.5-17.5); MEAN CORPUSCULAR HEMOGLOBIN 30.8 pg (27.0-33.0); MEAN CORPUSCULAR HGB CONC 33.3 g/dl (32.0-36.5); MEAN CORPUSCULAR VOLUME 92.4 fl (80.0-96.0); PLATELET COUNT, AUTOMATED 271 10^3/uL (150-450); RED BLOOD COUNT 5.65 10^6/uL (4.30-6.10); WHITE BLOOD COUNT 5.9 10^3/uL (4.0-10.0)
[2024-05-29 07:17] LABS: CALCIUM LEVEL 9.7 MG/DL (8.3-10.6); CREATININE FOR GFR 1.36 MG/DL (0.70-1.30); POTASSIUM SERUM 4.5 MMOL/L (3.5-5.1)
[2024-05-29 12:00] VITALS: BP 145/91; TEMP 97.5; O2SAT 95
[2024-05-29] MEDS: MIRALAX *UNIT DOSE* 17GM PACKET PO PRN (15:16)
[2024-05-29 20:00] VITALS: BP 144/90; TEMP 97.9; O2SAT 95
[2024-05-30 04:09] VITALS: BP 152/91; TEMP 97.7; O2SAT 91
[2024-05-30 12:00] VITALS: BP 158/94; TEMP 97.3; O2SAT 96
[2024-05-30 19:54] VITALS: BP 152/99; TEMP 97.7; O2SAT 95
[2024-05-31 04:28] VITALS: BP 138/93; TEMP 97.5; O2SAT 94
[2024-05-31 08:25] VITALS: BP 156/82
[2024-05-31 12:00] VITALS: BP 155/99; TEMP 97.5
[2024-05-31] MEDS: BACITRACIN OINTMENT 30GM TUBE TOP SCH (13:27)
== END 2024-05-31 18:22 | disposition home health service (06) | DRG 982 ==
LOC: M ED 15:12 → M ED INP 21:30 → M MSPAV 05-24 14:20
PROVIDERS: ADMIT Internal Medicine; ATTEND Family Medicine
PROC: 0PHP34Z Insertion of Internal Fixation Device into Right Metacarpal, Percutaneous Approach (ICD-10-PCS; principal; 2024-05-21)
PROC: 0PSPXZZ Reposition Right Metacarpal, External Approach (ICD-10-PCS; 2024-05-21)
PROC: 0PP Upper Bones, Removal (ICD-10-PCS; 2024-05-31)
DX: G93.40 Encephalopathy, unspecified (principal); G91.9 Hydrocephalus, unspecified; F32.A Depression, unspecified; I10 Essential (primary) hypertension; E78.5 Hyperlipidemia, unspecified; J44.9 Chronic obstructive pulmonary disease, unspecified; M10.9 Gout, unspecified; S62.330A Displaced fracture of neck of second metacarpal bone, right hand, initial encounter for closed fracture; H91.3 Deaf nonspeaking, not elsewhere classified; K21.9 Gastro-esophageal reflux disease without esophagitis; R32 Unspecified urinary incontinence; Z85.46 Personal history of malignant neoplasm of prostate; Z98.2 Presence of cerebrospinal fluid drainage device; Z87.891 Personal history of nicotine dependence; Z79.82 Long term (current) use of aspirin; Z79.899 Other long term (current) drug therapy; Z88.1 Allergy status to other antibiotic agents; Z88.2 Allergy status to sulfonamides; Z88.8 Allergy status to other drugs, medicaments and biological substances; Z92.3 Personal history of irradiation; W19.XXXA Unspecified fall, initial encounter; Y92.9 Unspecified place or not applicable; Y93.89 Activity, other specified; Y99.8 Other external cause status

== ENCOUNTER 2024-06-01 19:04 | Inpatient (IN) | payer MEDICARE, MEDICAID ==
[~2024-06-01] VITALS: Ht 167.6 cm; Wt 81.5 kg
[2024-06-01] VITALS (7 sets, daily range): BP systolic 181
[~2024-06-01 19:04] MED LIST changes: +ACET1TAB55 PO; +FAMO40TA3 PO; +LUNE2TAB28 PO; +OXYC1TAB23 PO
[2024-06-01] MEDS ORDERED: ISOVUE-370 76% 100ML VIAL As Ordered ONE (20:02)
[2024-06-01 20:03] LABS: BASO # 0.1 10^3/uL (0.0-0.2); BASO % 0.9 % (0.0-1.0); EOS # 0.5 10^3/uL (0.0-0.5); EOS % 6.4 % (0.0-3.0); HEMATOCRIT 51.8 % (42.0-52.0); HEMOGLOBIN 17.7 g/dl (13.5-17.5); LYMPH # 1.7 10^3/uL (1.5-5.0); LYMPH % 24.6 % (24.0-44.0); MEAN CORPUSCULAR HEMOGLOBIN 30.9 pg (27.0-33.0); MEAN CORPUSCULAR HGB CONC 34.2 g/dl (32.0-36.5); MEAN CORPUSCULAR VOLUME 90.4 fl (80.0-96.0); MONO # 0.8 10^3/uL (0.0-0.8); MONO % 10.7 % (2.0-8.0); NEUTROPHILS % 56.8 % (36.0-66.0); PLATELET COUNT, AUTOMATED 257 10^3/uL (150-450); RED BLOOD COUNT 5.73 10^6/uL (4.30-6.10)
[2024-06-01 20:10] LABS: INR 0.97; PARTIAL THROMBOPLASTIN TIME 25.6 SECONDS (24.8-34.2); PROTHROMBIN TIME 12.6 SECONDS (12.5-14.5)
[2024-06-01 20:28] LABS: CK-MB VALUE MASS 2.8 NG/ML (<3.6)
[2024-06-01 20:30] LABS: CALCIUM LEVEL 9.3 MG/DL (8.3-10.6); CREATININE FOR GFR 1.41 MG/DL (0.70-1.30); GLOMERULAR FILTRATION RATE 53.7 (>49); POTASSIUM SERUM 4.7 MMOL/L (3.5-5.1)
[2024-06-01 20:33] LABS: MB/CK RELATIVE INDEX 4.51 (< OR =4)
[2024-06-01] MEDS: ASPIRIN 325 MG TAB PO ONE (20:57)
[2024-06-02] VITALS (7 sets, daily range): BP systolic 125–181; BP diastolic 64–83; TEMP 97–98; O2SAT 93–96
[2024-06-02] MEDS: CLOPIDOGREL 75 MG TAB PO STA (00:11)
[2024-06-02] MEDS ORDERED: ASPI-615 PO (01:23)
[2024-06-02] MEDS ORDERED: ACET-897 PO (01:23)
[2024-06-02] MEDS ORDERED: HOME MED LIST COMPLETE! XX SCH (01:25)
[2024-06-02] MEDS ORDERED: ALBUTEROL 90 MCG/ACT 8GM HFA INHALER INH PRN (01:40)
[2024-06-02 03:01] LABS: PROLACTIN 13.82 NG/ML (2.1-17.7)
[2024-06-02] MEDS: FAMOTIDINE 20 MG TAB PO SCH (08:03)
[2024-06-02] MEDS: allopurinoL 100 MG TAB PO SCH (08:04)
[2024-06-02] MEDS: PARoxetine 20MG TABLET PO SCH (08:04)
[2024-06-02] MEDS: ASPIRIN 81MG ENTERIC TABLET PO SCH (08:04)
[2024-06-02] MEDS: oxyBUTYnin *DITROPAN XL* 5 MG TABCR PO SCH (08:04)
[2024-06-02] MEDS: lisinopriL 5 MG TAB PO SCH (08:06)
[2024-06-02] MEDS: HEPARIN SOD (PORCINE) 5000UNITS/ML 1ML VIAL/SYRINGE SQ SCH (08:07)
[2024-06-02 10:57] LABS: CHOLESTEROL RISK RATIO 3.63 (<5); LDL CHOLESTEROL 75.4 MG/DL (<100)
[2024-06-02 11:00] LABS: THYROID STIMULATING HORMONE 0.309 uIU/ML (0.55-4.78)
[2024-06-02 11:03] LABS: HEMOGLOBIN A1c 5.4 % (4.0-6.0)
[2024-06-02] MEDS: ATORVASTATIN 20 MG TAB PO SCH (20:53)
[2024-06-02] MEDS: CLOPIDOGREL 75 MG TAB PO SCH (20:55)
[2024-06-03 03:15] VITALS: BP 150/92; TEMP 97.6; O2SAT 94
[2024-06-03 05:33] LABS: HEMATOCRIT 53.7 % (42.0-52.0); HEMOGLOBIN 17.9 g/dl (13.5-17.5); MEAN CORPUSCULAR HEMOGLOBIN 30.5 pg (27.0-33.0); MEAN CORPUSCULAR HGB CONC 33.3 g/dl (32.0-36.5); MEAN CORPUSCULAR VOLUME 91.5 fl (80.0-96.0); PLATELET COUNT, AUTOMATED 278 10^3/uL (150-450); RED BLOOD COUNT 5.87 10^6/uL (4.30-6.10); WHITE BLOOD COUNT 7.3 10^3/uL (4.0-10.0)
[2024-06-03 05:58] LABS: ALBUMIN 3.7 G/DL (3.2-5.2); BILIRUBIN,TOTAL 0.6 MG/DL (0.3-1.2); CALCIUM LEVEL 9.7 MG/DL (8.3-10.6); CREATININE FOR GFR 1.46 MG/DL (0.70-1.30); GLOMERULAR FILTRATION RATE 51.6 (>49); POTASSIUM SERUM 4.5 MMOL/L (3.5-5.1); TOTAL PROTEIN 6.5 G/DL (5.7-8.2)
[2024-06-03 07:40] VITALS: BP 142/93; TEMP 97.8; O2SAT 91
[2024-06-03] MEDS: FAMOTIDINE 20 MG TAB PO ONE (08:56)
[2024-06-03 16:00] VITALS: BP 133/85; TEMP 97.6; O2SAT 94
[2024-06-03 19:24] VITALS: BP 137/81; TEMP 98.2; O2SAT 93
[2024-06-03 23:24] VITALS: BP 129/89; TEMP 98.1; O2SAT 92
[2024-06-04 03:03] VITALS: BP 153/90; TEMP 97.3; O2SAT 94
[2024-06-04 04:53] LABS: HEMOGLOBIN 17.4 g/dl (13.5-17.5); MEAN CORPUSCULAR HEMOGLOBIN 30.8 pg (27.0-33.0); MEAN CORPUSCULAR HGB CONC 33.5 g/dl (32.0-36.5); PLATELET COUNT, AUTOMATED 284 10^3/uL (150-450); RED BLOOD COUNT 5.65 10^6/uL (4.30-6.10); WHITE BLOOD COUNT 6.6 10^3/uL (4.0-10.0)
[2024-06-04 05:13] LABS: CALCIUM LEVEL 9.4 MG/DL (8.3-10.6); CREATININE FOR GFR 1.58 MG/DL (0.70-1.30); GLOMERULAR FILTRATION RATE 47.1 (>49); POTASSIUM SERUM 4.9 MMOL/L (3.5-5.1)
[2024-06-04 07:31] VITALS: BP 174/88; TEMP 97.6; O2SAT 93
[2024-06-04] MEDS: FAMOTIDINE 20 MG TAB PO SCH (08:25)
[2024-06-04 12:00] VITALS: BP 140/90; TEMP 98; O2SAT 93
[2024-06-04] MEDS: ONDANSETRON 4MG TAB PO PRN (12:21)
[2024-06-04] MEDS: ACETAMINOPHEN TAB 650MG DOSE (2X325MG) PO PRN (12:21)
[2024-06-04] MEDS: buPROPion **XL** TABLET 150MG (WELLBUTRIN XL) PO SCH (14:25)
[2024-06-04 16:00] VITALS: BP 120/85; TEMP 98; O2SAT 93
[2024-06-04] MEDS: LORazepam 2 MG/ML 1ML VIAL IV STA (16:44)
[2024-06-04 19:23] VITALS: BP 132/85; TEMP 97.2; O2SAT 95
[2024-06-04 20:40] VITALS: BP 138/87; TEMP 98.2; O2SAT 95
[2024-06-05 04:00] VITALS: BP 141/87; TEMP 98.2; O2SAT 94
[2024-06-05 13:00] VITALS: BP 138/72; TEMP 98.6; O2SAT 94
[2024-06-05] MEDS: NS 0.45% 1,000 ML IV SCH (13:31)
[2024-06-05 20:00] VITALS: BP 152/90; TEMP 97.7; O2SAT 98
[2024-06-05] MEDS: amLODIPine 5 MG TAB PO SCH (20:36)
[2024-06-06 04:00] VITALS: BP 146/93; TEMP 98.1; O2SAT 96
[2024-06-06 07:54] LABS: HEMATOCRIT 51.1 % (42.0-52.0); HEMOGLOBIN 17.1 g/dl (13.5-17.5); MEAN CORPUSCULAR HEMOGLOBIN 31.1 pg (27.0-33.0); MEAN CORPUSCULAR HGB CONC 33.5 g/dl (32.0-36.5); MEAN CORPUSCULAR VOLUME 93.1 fl (80.0-96.0); PLATELET COUNT, AUTOMATED 244 10^3/uL (150-450); RED BLOOD COUNT 5.49 10^6/uL (4.30-6.10); WHITE BLOOD COUNT 6.5 10^3/uL (4.0-10.0)
[2024-06-06 08:40] LABS: CALCIUM LEVEL 9.1 MG/DL (8.3-10.6); CREATININE FOR GFR 1.38 MG/DL (0.70-1.30); GLOMERULAR FILTRATION RATE 55.1 (>49); POTASSIUM SERUM 5.1 MMOL/L (3.5-5.1)
[2024-06-06] MEDS: OLANZapine 2.5MG TABLET PO ONE (08:50)
[2024-06-06 12:00] VITALS: BP 157/82; TEMP 98.2; O2SAT 94
[2024-06-06 21:00] VITALS: BP 154/89; TEMP 97.9; O2SAT 96
[2024-06-07 04:00] VITALS: BP 142/90; TEMP 98.1; O2SAT 96
[2024-06-07] MEDS: MOM 30ML SUSPENSION UDC PO PRN (11:26)
[2024-06-07 12:00] VITALS: BP 135/99; TEMP 97.9; O2SAT 95
[2024-06-07 12:20] LABS: CALCIUM LEVEL 9.8 MG/DL (8.3-10.6); CREATININE FOR GFR 1.4 MG/DL (0.70-1.30); GLOMERULAR FILTRATION RATE 54.1 (>49); POTASSIUM SERUM 4.4 MMOL/L (3.5-5.1)
[2024-06-07 20:48] VITALS: BP 144/93; TEMP 98.4; O2SAT 96
[2024-06-07] MEDS: RAMELTEON 8 MG TAB (ROZEREM) PO PRN (21:29)
[2024-06-08 04:00] VITALS: BP 140/89; TEMP 97.5; O2SAT 96
[2024-06-08] MEDS: NORCO, ANEXSIA 5/325MG TABLET (HYDROcodone/ACETAMINOPHEN) PO ONE (05:02)
[2024-06-08] MEDS ORDERED: CEPHALEXIN 500 MG CAP PO SCH (05:15)
[2024-06-08 06:05] LABS: BASO # 0.1 10^3/uL (0.0-0.2); BASO % 1.4 % (0.0-1.0); EOS # 0.5 10^3/uL (0.0-0.5); EOS % 9.1 % (0.0-3.0); HEMATOCRIT 52.1 % (42.0-52.0); HEMOGLOBIN 17.5 g/dl (13.5-17.5); LYMPH # 1.8 10^3/uL (1.5-5.0); LYMPH % 32.6 % (24.0-44.0); MEAN CORPUSCULAR HEMOGLOBIN 31.1 pg (27.0-33.0); MEAN CORPUSCULAR HGB CONC 33.6 g/dl (32.0-36.5); MEAN CORPUSCULAR VOLUME 92.7 fl (80.0-96.0); MONO # 0.5 10^3/uL (0.0-0.8); MONO % 8.5 % (2.0-8.0); NEUTROPHILS # 2.7 10^3/uL (1.5-8.5); NEUTROPHILS % 47.5 % (36.0-66.0); PLATELET COUNT, AUTOMATED 253 10^3/uL (150-450); RED BLOOD COUNT 5.62 10^6/uL (4.30-6.10); WHITE BLOOD COUNT 5.6 10^3/uL (4.0-10.0)
[2024-06-08] MEDS: CLINDAMYCIN 150MG CAPSULE PO SCH (06:49)
[2024-06-08 12:00] VITALS: BP 136/87; TEMP 97.9; O2SAT 95
[2024-06-08 14:53] LABS: BASO # 0.1 10^3/uL (0.0-0.2); EOS # 0.6 10^3/uL (0.0-0.5); EOS % 8.5 % (0.0-3.0); HEMATOCRIT 53.5 % (42.0-52.0); HEMOGLOBIN 17.7 g/dl (13.5-17.5); LYMPH # 2.4 10^3/uL (1.5-5.0); MEAN CORPUSCULAR HEMOGLOBIN 30.8 pg (27.0-33.0); MEAN CORPUSCULAR HGB CONC 33.1 g/dl (32.0-36.5); MONO # 0.6 10^3/uL (0.0-0.8); MONO % 7.9 % (2.0-8.0); NEUTROPHILS # 3.5 10^3/uL (1.5-8.5); PLATELET COUNT, AUTOMATED 268 10^3/uL (150-450); RED BLOOD COUNT 5.75 10^6/uL (4.30-6.10); WHITE BLOOD COUNT 7.2 10^3/uL (4.0-10.0)
[2024-06-08 15:09] LABS: ERYTHROCYTE SEDIMENTATION RATE 5 mm/hr (0-20)
[2024-06-08 15:11] LABS: URIC ACID 4.5 MG/DL (3.7-9.2)
[2024-06-08 15:13] LABS: C REACTIVE PROTEIN QUANTITATIV < 0.40 MG/DL (<1.0)
[2024-06-08 15:14] LABS: BLOOD UREA NITROGEN 18 MG/DL (9-23); CALCIUM LEVEL 9.6 MG/DL (8.3-10.6); CARBON DIOXIDE LEVEL 24 MMOL/L (20-31); CHLORIDE LEVEL 109 MMOL/L (98-107); CREATININE FOR GFR 1.37 MG/DL (0.70-1.30); GLOMERULAR FILTRATION RATE 55.5 (>49); GLUCOSE, FASTING 99 MG/DL (74-106); POTASSIUM SERUM 4.6 MMOL/L (3.5-5.1); SODIUM LEVEL 140 MMOL/L (136-145)
[2024-06-08 15:21] LABS: PROCALCITONIN 0.08 ng/ml
[2024-06-08] MEDS: predniSONE 20 MG TAB PO SCH (15:29)
[2024-06-08] MEDS ORDERED: AMLO1TAB24 PO (15:35)
[2024-06-08] MEDS ORDERED: RAME8TAB2 PO (15:35)
[2024-06-08] MEDS ORDERED: OLAN2.5T25 PO (15:35)
[2024-06-08] MEDS ORDERED: CLOP75TA2 PO (15:35)
[2024-06-08 20:58] VITALS: BP 157/85; TEMP 97.9; O2SAT 96
[2024-06-09 05:07] VITALS: BP 142/83; TEMP 97.5; O2SAT 94
[2024-06-09] MEDS: OLANZapine 2.5MG TABLET PO PRN (10:23)
[2024-06-09 12:00] VITALS: BP 162/54; TEMP 97.9; O2SAT 96
[2024-06-09] MEDS ORDERED: CLIN150C17 PO (13:16)
[2024-06-09 19:45] VITALS: BP 141/91; TEMP 98.1; O2SAT 97
[2024-06-09 20:18] VITALS: BP 141/91
[2024-06-10 04:58] VITALS: BP 141/93; TEMP 97.9; O2SAT 96
== END 2024-06-10 07:32 | DRG 69 ==
LOC: M ED 19:04 → EDBD 19:04 → M ED INP 06-02 01:19 → M PCU 06-02 09:23 → M MSPAV 06-04 20:29
PROVIDERS: ADMIT Student in an Organized Health Care Education/Training Program; ATTEND General Practice
PROC: B246ZZZ Ultrasonography of Right and Left Heart (ICD-10-PCS; principal; 2024-06-02)
DX: G45.9 Transient cerebral ischemic attack, unspecified (principal); G91.9 Hydrocephalus, unspecified; N17.9 Acute kidney failure, unspecified; G81.91 Hemiplegia, unspecified affecting right dominant side; R56.9 Unspecified convulsions; I12.9 Hypertensive chronic kidney disease with stage 1 through stage 4 chronic kidney disease, or unspecified chronic kidney disease; J44.9 Chronic obstructive pulmonary disease, unspecified; F32.A Depression, unspecified; G47.00 Insomnia, unspecified; N18.9 Chronic kidney disease, unspecified; E78.5 Hyperlipidemia, unspecified; H91.3 Deaf nonspeaking, not elsewhere classified; M10.9 Gout, unspecified; R45.1 Restlessness and agitation; R26.81 Unsteadiness on feet; K21.9 Gastro-esophageal reflux disease without esophagitis; S62.300D Unspecified fracture of second metacarpal bone, right hand, subsequent encounter for fracture with routine healing; R32 Unspecified urinary incontinence; Z79.82 Long term (current) use of aspirin; Z79.899 Other long term (current) drug therapy; Z88.1 Allergy status to other antibiotic agents; Z88.2 Allergy status to sulfonamides; Z88.8 Allergy status to other drugs, medicaments and biological substances; Z98.2 Presence of cerebrospinal fluid drainage device; Z85.46 Personal history of malignant neoplasm of prostate; Z92.3 Personal history of irradiation; Z87.891 Personal history of nicotine dependence

== ENCOUNTER → 2024-07-13 | Outpatient (CLI) | payer MEDICARE, MEDICAID ==
[~2024-07-13] MED LIST changes: +ACET-897 PO; +AMLO1TAB24 PO; +ASPI-615 PO; +CLIN150C17 PO; +CLOP75TA2 PO; +OLAN2.5T53 PO; +RAME8TAB2 PO
== END ==
LOC: M SOG 07:22
PROVIDERS: ATTEND Physician Assistant
DX: S62.330A Displaced fracture of neck of second metacarpal bone, right hand, initial encounter for closed fracture (principal); Y93.9 Activity, unspecified; Y92.9 Unspecified place or not applicable

== ENCOUNTER → 2024-08-31 | Outpatient (CLI) | payer MEDICARE, MEDICAID ==
[~2024-08-31] MED LIST changes: -LEVO750T14 PO; +LEVO75TAB PO
== END ==
LOC: M SOG 07:51
PROVIDERS: ATTEND Physician Assistant
DX: S62.330A Displaced fracture of neck of second metacarpal bone, right hand, initial encounter for closed fracture (principal); W18.30XA Fall on same level, unspecified, initial encounter; Y92.009 Unspecified place in unspecified non-institutional (private) residence as the place of occurrence of the external cause

== ENCOUNTER 2024-09-12 13:51 | Emergency (ER) | payer MEDICARE, MEDICAID ==
[~2024-09-12] VITALS: Ht 177.8 cm; Wt 98.0 kg
[2024-09-12 14:31] LABS: BASO % 0.3 % (0.0-1.0); EOS # 0.5 10^3/uL (0.0-0.5); EOS % 6.6 % (0.0-3.0); HEMOGLOBIN 16.9 g/dl (13.5-17.5); LYMPH # 1.5 10^3/uL (1.5-5.0); LYMPH % 19.4 % (24.0-44.0); MEAN CORPUSCULAR HEMOGLOBIN 31.4 pg (27.0-33.0); MEAN CORPUSCULAR HGB CONC 33.8 g/dl (32.0-36.5); MEAN CORPUSCULAR VOLUME 92.9 fl (80.0-96.0); MONO # 0.6 10^3/uL (0.0-0.8); MONO % 8.1 % (2.0-8.0); NEUTROPHILS # 4.9 10^3/uL (1.5-8.5); NEUTROPHILS % 65.3 % (36.0-66.0); PLATELET COUNT, AUTOMATED 249 10^3/uL (150-450); RED BLOOD COUNT 5.38 10^6/uL (4.30-6.10); WHITE BLOOD COUNT 7.5 10^3/uL (4.0-10.0)
[2024-09-12 14:54] LABS: LIPASE 26 U/L (12-53)
[2024-09-12] MEDS: NS 1,000 ML IV ONE (14:55)
[2024-09-12 14:57] LABS: ALBUMIN 3.3 G/DL (3.2-5.2); ALKALINE PHOSPHATASE 98 U/L (40-129); ALT/SGPT 17 U/L (7.0-40); AST/SGOT < 8 U/L (<34); BILIRUBIN,DIRECT 0.2 MG/DL (<0.4); BILIRUBIN,TOTAL 0.4 MG/DL (0.3-1.2); BLOOD UREA NITROGEN 13 MG/DL (9-23); CALCIUM LEVEL 9.3 MG/DL (8.3-10.6); CARBON DIOXIDE LEVEL 26 MMOL/L (20-31); CHLORIDE LEVEL 110 MMOL/L (98-107); CREATININE FOR GFR 1.28 MG/DL (0.70-1.30); GLOMERULAR FILTRATION RATE 59.9 (>49); GLUCOSE, FASTING 142 MG/DL (74-106); POTASSIUM SERUM 3.8 MMOL/L (3.5-5.1); SODIUM LEVEL 141 MMOL/L (136-145); TOTAL PROTEIN 6.2 G/DL (5.7-8.2)
[2024-09-12] MEDS ORDERED: ISOVUE-370 76% 100ML VIAL As Ordered ONE (15:05)
[2024-09-12] MEDS ORDERED: ACETAMINOPHEN 500 MG TAB PO ONE (16:10)
[2024-09-12 18:11] LABS: CK-MB VALUE MASS 1.2 NG/ML (<3.6)
[2024-09-12 18:12] LABS: MB/CK RELATIVE INDEX 1.96 (< OR =4)
[2024-09-12 19:25] LABS: CK-MB VALUE MASS 1.3 NG/ML (<3.6)
[2024-09-12 19:27] LABS: MB/CK RELATIVE INDEX 1.91 (< OR =4)
[2024-09-12 21:38] LABS: CK-MB VALUE MASS 1.3 NG/ML (<3.6)
[2024-09-12 21:41] LABS: MB/CK RELATIVE INDEX 1.83 (< OR =4)
[2024-09-13 10:21] VITALS: BP 165/94
[2024-09-13 10:23] VITALS: TEMP 98.3; O2SAT 95
== END 2024-09-13 10:42 | disposition short-term general hospital (02) ==
LOC: M ED 13:51
DX: A09 Infectious gastroenteritis and colitis, unspecified (principal); T85.01XA Breakdown (mechanical) of ventricular intracranial (communicating) shunt, initial encounter; J44.9 Chronic obstructive pulmonary disease, unspecified; I10 Essential (primary) hypertension; K21.9 Gastro-esophageal reflux disease without esophagitis; Z85.46 Personal history of malignant neoplasm of prostate; Z87.891 Personal history of nicotine dependence; Z88.1 Allergy status to other antibiotic agents; Z88.2 Allergy status to sulfonamides; Z79.1 Long term (current) use of non-steroidal anti-inflammatories (NSAID); Z79.51 Long term (current) use of inhaled steroids; Z79.899 Other long term (current) drug therapy
CPT/HCPCS: 36415; 70450; 70544; 70547; 70551; 71045; 74177; 75809; 80048; 80076; 81001; 82550; 82553; 83690; 84484; 85025; 93005; 99285; Q9967

== ENCOUNTER → 2024-09-15 | Outpatient (REF) | payer MEDICARE, MEDICAID | LOC: M LAB REF 16:41 | PROVIDERS: ATTEND Internal Medicine | DX: M10.9 Gout, unspecified (principal) ==

== ENCOUNTER → 2024-11-26 | Day surgery (SDC) | payer MEDICARE, MEDICAID ==
[~2024-11-26] VITALS: Ht 177.8 cm; Wt 79.8 kg
[~2024-11-26] MED LIST changes: +ASPI-226 PO; +BUDE2SUS3; +BUPR-71 PO; +FORM20VI2; +LIDOCAINE 2% 100MG/5ML SDV (FOR ANES.) As Ordered ONE; +OXYB5TAB14 PO; +PARO40TA2 PO; +PHENYLephrine 500MCG 5ML (100MCG/ML) SYRINGE As Ordered ONE; +SENN-121 PO; +TAMS1CAP17 PO; +YUPE175S; +ePHEDrine SULFATE 25 MG/5 ML(5MG/ML) SYRINGE As Ordered ONE; +fentaNYL 100 MCG/2 ML INJECTION As Ordered ONE; +propofoL 500 MG/50 ML VIAL As Ordered ONE
[2024-11-26 08:36] VITALS: BP 114/70; O2SAT 94
== END | disposition home or self-care (01) ==
LOC: M OPP 06:38
PROVIDERS: ATTEND Surgery
DX: K62.5 Hemorrhage of anus and rectum (principal); K44.9 Diaphragmatic hernia without obstruction or gangrene; K29.50 Unspecified chronic gastritis without bleeding; K30 Functional dyspepsia; Z86.73 Personal history of transient ischemic attack (TIA), and cerebral infarction without residual deficits; Z88.1 Allergy status to other antibiotic agents; Z88.8 Allergy status to other drugs, medicaments and biological substances; Z88.2 Allergy status to sulfonamides; Z79.82 Long term (current) use of aspirin; Z79.899 Other long term (current) drug therapy; J44.9 Chronic obstructive pulmonary disease, unspecified
CPT/HCPCS: 43239; 45378; 88305; J2371; J3010

== ENCOUNTER → 2025-02-08 | Outpatient (CLI) | payer MEDICARE, MEDICAID ==
[~2025-02-08] MED LIST changes: -BUPR-597 PO; +BUPR-766 PO; -FLOM0.4C39 PO; -LIDOCAINE 2% 100MG/5ML SDV (FOR ANES.) As Ordered ONE; -PHENYLephrine 500MCG 5ML (100MCG/ML) SYRINGE As Ordered ONE; +TAMS-18 PO; -ePHEDrine SULFATE 25 MG/5 ML(5MG/ML) SYRINGE As Ordered ONE; -fentaNYL 100 MCG/2 ML INJECTION As Ordered ONE; -propofoL 500 MG/50 ML VIAL As Ordered ONE
== END ==
LOC: M WUC 14:37
PROVIDERS: ATTEND Physician Assistant
DX: S23.41XA Sprain of ribs, initial encounter (principal); X58.XXXA Exposure to other specified factors, initial encounter; Y92.9 Unspecified place or not applicable; Y93.9 Activity, unspecified; Y99.9 Unspecified external cause status

== ENCOUNTER → 2025-04-22 | Outpatient (REF) | payer MEDICARE, MEDICAID ==
[~2025-04-22] MED LIST changes: -PRAV20TA2 PO; +PRAV20TA78 PO
[2025-04-22 17:17] LABS: INR 0.89
== END ==
LOC: M LAB REF 16:52
PROVIDERS: ATTEND Internal Medicine
DX: Z01.818 Encounter for other preprocedural examination (principal); Z79.899 Other long term (current) drug therapy

== ENCOUNTER → 2025-06-15 | Outpatient (CLI) | payer MEDICARE, MEDICAID | LOC: M RAD 15:27 | PROVIDERS: ATTEND Internal Medicine Pulmonary Disease | DX: Z12.2 Encounter for screening for malignant neoplasm of respiratory organs (principal); Z87.891 Personal history of nicotine dependence ==

== ENCOUNTER → 2025-06-20 | Outpatient (CLI) | payer MEDICARE, MEDICAID | LOC: M WUC 14:38 | PROVIDERS: ATTEND Internal Medicine | DX: R05.9 Cough, unspecified (principal) ==

== ENCOUNTER → 2025-07-15 | Outpatient (REF) | payer MEDICARE, MEDICAID ==
[2025-07-15 17:47] LABS: TOTAL PROTEIN,RANDOM URINE 37.1 MG/DL (0.0-14.0)
== END ==
LOC: M LAB REF 16:53
PROVIDERS: ATTEND Internal Medicine Nephrology
DX: N18.31 Chronic kidney disease, stage 3a (principal)

== ENCOUNTER → 2025-09-28 | Outpatient (REF) | payer MEDICARE, MEDICAID | LOC: M LAB REF 17:27 | PROVIDERS: ATTEND Internal Medicine | DX: G40.89 Other seizures (principal) ==